=== PATIENT | female | born 1930 | race Caucasian/White ===

== ENCOUNTER 2016-11-29 23:57 | Inpatient (IN) | payer MEDICARE, MEDICAID, OTHER ==
[2016-11-30 00:20] LABS: % EOSINOPHILS 1.5 % (0.0-5.0); % LYMPHOCYTES 11.4 % (20.0-50.0); % MONOCYTES 6.6 % (2.0-10.0); % NEUTROPHILS 80.5 % (40.0-80.0); HEMOGLOBIN 13.6 gm/dL (11.7-16.1); MEAN CORPUSCULAR HEMOGLOBIN 28.7 pg (27.0-31.0); MEAN CORPUSCULAR HGB CONC 33.3 pg (28.0-36.0); MEAN PLATELET VOLUME 8.3 fl; NEUTROPHILE ABSOLUTE 11.7 Th/cmm (1.8-8.0); PLATELET COUNT 243 Th/cmm (150-400); RED BLOOD COUNT 4.76 Mil/cmm (3.80-5.20); RED CELL DISTRIBUTION WIDTH 13.9 % (11.5-20.0)
[2016-11-30 00:24] LABS: WHITE BLOOD COUNT 14.6 Th/cmm (4.8-10.8)
[2016-11-30 00:35] LABS: ANION GAP 9.9 (7.0-16.0); BUN - UREA NITROGEN 16 mg/dL (7-25); BUN/CREATININE RATIO 22.9; CALCIUM SERUM 9.7 mg/dL (8.6-10.3); CARBON DIOXIDE 23.4 mEq/L (21.0-31.0); CHLORIDE 107 mEq/L (98-107); CREATININE - SERUM 0.7 mg/dL (0.6-1.2); GLUCOSE 123 mg/dL (70-105); LIPASE 12 U/L (11-82); POTASSIUM SERUM 4.3 mEq/L (3.5-5.1); SODIUM SERUM 136 mEq/L (136-145)
--- NOTE | 2016-11-30 00:52 | ED Physician Chart ---
Chief Complaint/HPI - Patient Information Date Seen:: 11/30/16 Time Seen:: 00:20 Chief Complaint:: abdominal pain History of Present Illness:: Patient developed left lower quadrant pain at 1400 yesterday. She had no vomiting or diarrhea. Her last bowel movement was 2 days ago. Allergies:: Allergies Allergy/AdvReac Type Severity Reaction Status Date / Time ibuprofen [From Motrin] Allergy Verified 11/30/16 00:32 Vitals:: Vital Signs - 8 hr 11/30/16 00:00 Temp 98.2 F HR 68 RR 18 BP 153/93 O2 Sat % 94 Review of Systems - Review of Systems General/Constitutional: No fever, No chills Skin: No skin lesions Head: No headache Eyes: No loss of vision ENT: No earache Neck: No neck pain Cardio Vascular: No chest pain Pulmonary: No SOB GI: No nausea, No vomiting, No diarrhea, Pain G/U: No dysuria, No frequency Musculoskeletal: No bone or joint pain, No back pain Endocrine: No polyuria, No polydipsia Psychiatric: Prior psych history Hematopoietic: No bruising, No lymphadenopathy Allergic/Immuno: No urticaria, No angioedema Neurological: No syncope, No focal symptoms Past Medical History - Past Medical History Past Medical History: HTN, Dyslipidemia, PUD/GERD, Arthritis, Other ( hyperlipidemia; polyneuropathy; hypothyroidism; vitamin D deficiency; major depression; bipolar disorder; insomnia; hearing impaired) Family History: Diabetes Melitus Social History: Non Smoker, No Alcohol Surgical History: other (colon cancer in 2012) Psychiatricy History: Depression, Bipolar Medication: Reviewed Family Medical History - Family Member Son History Unknown: Yes Physical Exam - Physical Examination General/Constitutional: Well-developed, well-nourished, Alert, No distress Head: Atraumatic Eyes: Lids, conjuctiva normal, PERRL Skin: Nl inspection, No rash, No skin lesions, No ecchymosis ENMT: External ears, nose nl, Lips, teeth, gums nl, Tonsils nl Neck: No nuchal rigidity Respiratory: Nl effort/Exclusion, Clear to Auscultation, No Wheeze/Rhonchi/Rales Cardio Vascular: RRR, No murmur, gallop, rubs, NL S1 S2 GI: No organomegaly, No hernia, Normal BS's Other GI comments:: Abdomen distended,: Lower abdominal tenderness maximum in the left lower quadrant Extremities: No edema, Normal digits & nails Neuro/Psych: No focal deficits Misc: Normal back, No paraspinal tenderness Labs/Radiology/EKG Results - Lab Results Results: Laboratory Tests 11/30/16 11/30/16 00:10 00:10 WBC 14.6 H RBC 4.76 Hgb 13.6 Hct 41.0 MCV 86.0 MCH 28.7 MCHC Differential 33.3 RDW 13.9 Plt Count 243 MPV 8.3 Neutrophils % 80.5 H Lymphocytes % 11.4 L Monocytes % 6.6 Eosinophils % 1.5 Basophils % 0.0 Sodium 136 Potassium 4.3 Chloride 107 Carbon Dioxide 23.4 Anion Gap 9.9 BUN 16 Creatinine 0.7 Est GFR ( Amer) TNP Est GFR (Non-Af Amer) TNP BUN/Creatinine Ratio 22.9 Glucose 123 H Calcium 9.7 Lipase 12 - Radiology Results Results: CT scan abdomen and pelvis: diverticulitis ED Septic Shock - . Is Septic Shock (SBP<90, OR Lactate>4 mmol\L) present?: No - <6hrs of presentation: Vital Signs: Vital Signs - 8 hr 11/30/16 00:00 Temp 98.2 F HR 68 RR 18 BP 153/93 O2 Sat % 94 Reassessment (Disposition) - Reassessment Reassessment Condition:: Unchanged - Diagnosis Diagnosis:: diverticulitis; urinary retention - Patient Disposition Admitted to:: Med/Surg Spoke to:: Kanu Lang Admitting Medical Physician:: Kanu Lang Condition at Disposition:: Stable, Unchanged
[2016-11-30 01:02] LABS: URINE BILIRUBIN NEGATIVE (NEGATIVE); URINE BLOOD NEGATIVE (NEGATIVE); URINE COLOR YELLOW; URINE GLUCOSE (UA) NEGATIVE (NEGATIVE); URINE KETONE NEGATIVE (NEGATIVE); URINE PROTEIN NEGATIVE (NEGATIVE); URINE UROBILINOGEN 0.2 E.U./dL (0.2 - 1.0)
[2016-11-30 01:03] LABS: URINE BACTERIA NONE SEEN /hpf (NONE SEEN); URINE EPITHELIAL CELLS NONE SEEN /lpf (FEW); URINE RBC NONE SEEN /hpf (0-5)
[2016-11-30] MEDS ORDERED: Sodium Chloride 0.9% 1,000 ML IV ONE (03:02)
[2016-11-30] MEDS ORDERED: Ciprofloxacin 400mg Premix PB 400 MG/200 ML BAG IV ONE ×2 (03:03→03:07)
[2016-11-30 05:03] VITALS: BP 127/44
[2016-11-30] MEDS ORDERED: guaiFENesin 200 MG/10 ML UDC PO PRN (08:14)
[2016-11-30] MEDS ORDERED: Albuterol Nebulizer 2.5mg/3mL IH PRN (08:14)
[2016-11-30] MEDS ORDERED: Ipratropium Neb 0.5 mg/2.5 mL UD IH PRN (08:14)
[2016-11-30] MEDS: Vitamin D3 2,000 IU SGL PO SCH (10:15)
[2016-11-30] MEDS: metroNIDAZOLE 500mg/NS 100mL 500 MG/100 ML BAG IV SCH ×2 (10:16→20:16)
--- NOTE | 2016-11-30 10:25 | Diagnostic Imaging Report ---
CT abdomen and pelvis without intravenous contrast Indication: Abdominal pain Comparison: None, Technique: Axial images were obtained from the lung bases to the bilateral proximal femurs without IV contrast. Coronal reconstructions were made. total DLP: 394, CTDI8.5 FINDINGS: Exam is limited due to motion. Hypoventilatory changes and minimal passive atelectatic and consolidative changes of the lung bases are noted. Assessment of solid organs is limited due to lack of IV contrast. Hepatomegaly is noted with fatty gestation. Small gallstone versus less likely calcification in the gallbladder wall is noted. No focal splenic lesions. Small calcification seen in the tail of the pancreas which may be due to old inflammatory process. No focal adrenal lesions. No hydronephrosis or focal renal lesions. A Peterson catheter seen within collapsed in the bladder. Diverticulosis is noted with diverticulitis involving the distal descending and proximal sigmoid colon with surrounding inflammatory changes and small amount of free fluid. No evidence of free abdominal air. Moderate amount of stool is noted. A small wide-base fat-containing ventral hernia is seen with adjacent bowel loops. Postsurgical changes are seen along the transverse colon with evidence of previous hemicolectomy. Diffuse atherosclerotic vascular disease is noted. A calcified right posterior mesenteric lymph nodes are noted. Diffuse atherosclerotic vascular disease noted. Advanced degenerative changes of spine are noted. IMPRESSION: Findings consistent with diverticulitis of distal descending and proximal sigmoid colon with bowel wall thickening, inflammatory changes small amount of free fluid in this region. No evidence of abscess formation or free air. Clinical correlation follow-up is recommended to ensure resolution. Prominent liver with fatty infiltration Small gallstone versus less likely focal calcification of the gallbladder wall. Small wide-base fat-containing ventral hernia with an adjacent bowel loop noted. Diffuse atherosclerotic vascular disease. Mild bibasal atelectatic and minimal consolidative changes. Peterson catheter within collapsed urinary bladder.
[2016-11-30] MEDS: D5-0.45NS 1,000 ML IV SCH ×2 (10:48→23:26)
[2016-11-30] MEDS ORDERED: Levofloxacin 500mg/100mL 500 MG/100 ML BAG IV SCH (12:00)
[2016-11-30] MEDS ORDERED: VTE Chemical Prophylaxis Screen/Admission MC PRN (15:16)
[2016-11-30] MEDS: Morphine Sulfate 2 mg/mL 1mL Syr IVP PRN (16:48)
[2016-11-30] MEDS: Magnesium Hydroxide (MOM) 30 mL UDC PO SCH (20:16)
--- NOTE | 2016-11-30 20:21 | Admit Criteria Form ---
Admit Criteria Forms - Admit Criteria Diagnosis: DIVERTICULITIS, ACUTE Clinical Indications for Admission to Inpatient Care (Place 'X' for any and all applicable criteria): Admission is indicated for ANY ONE of the following (1)(2)(3)(4): [ ]I. Peritoneal signs on physical examination (eg, acute abdominal pain, abdominal tenderness and guarding) [ ]II. Hemodynamic instability [ ]III. Persistent gross bleeding per rectum [ ]IV. Need for inpatient surgical intervention [ ]V. Significant abnormality on imaging study including ANY ONE of the following: [ ]a) Abscess [ ]b) Obstruction [ ]c) Fistula [ ]d) Ileus [ ]e) Free perforation [ ]. Immunocompromised patient (steroid use, chemotherapy, uremia, AIDS , transplant patient ) with acute symptoms [X]VII Inpatient admission required rather than observation care (also use Diverticulitis, Acute: Observation Care as appropriate) because of ANY ONE of the following: [ ]a) High fever or infection. requiring inpatient admission as indicated by ANY ONE of the following(5): [ ]1) Appropriate outpatient or observation care antimicrobial treatment unavailable, not effective, not feasible [ ]2) Temperature > 103.1 degrees F (39.5 degrees C) (oral) or < 96.8 degrees F (36 degrees C)(rectal) that does not respond to all emergency treatment measures [ ]3) Temperature> 104.9 degrees F (40.5 degrees C)( oral) [ ]4) Documented bacteremia [ ]b) Severe pain requiring acute inpatient management [ ]c) Severe electrolyte abnormalities requiring inpatient care [ ]d) Ongoing transfusion for blood loss (> 2 units) [ ]e) IV fluid to replace significant ongoing losses (> 3 L/m2 per day) [ ]f) Parenteral nutrition regimen that must be implemented on inpatient basis [X]g) Other condition, treatment or monitoring requiring inpatient admission Extended stay beyond goal length of stay may be needed for (2) (15) : [ ]a) Unresolved symptoms (19) [ ]b) Complications [ ]c) Diverticular hemorrhage(2) The original [facility] [employer] content created by [facility] [employer] has been revised. The portions of the content which have been revised are identified through the use of italic text or in bold, and [facility] has neither reviewed nor approved the modified material. All other unmodified content is copyright [facility]. Please see references footnoted in the original [facility] edition 2016 Admit Criteria Met?: Yes
--- NOTE | 2016-11-30 22:29 | History & Physical ---
ADMIT DATE: 11/30/2016 CHIEF COMPLAINT: Abdominal pain. HISTORY OF PRESENT ILLNESS: This is an 86-year-old female with history of osteoarthritis, deaf and GERD, hypercholesterolemia, bipolar, hypertension, was admitted from nursing facility secondary to abdominal pain and discomfort with distention. The patient was brought in the ER and diagnosed with acute diverticulitis and admitted for inpatient case. PAST MEDICAL HISTORY: As mentioned in history of present illness. PAST SURGICAL HISTORY: Unable to obtain from the patient. The patient is confused. ALLERGIES: IBUPROFEN. MEDICATIONS: Fenofibrate, tramadol, Tylenol, Dulcolax, gabapentin, Synthroid, losartan, magnesium, sertraline and Abilify. FAMILY HISTORY: Noncontributory. SOCIAL HISTORY: The patient is a detention patient, requiring 24-hour total care. REVIEW OF SYSTEMS: This is limited secondary to the patient's current mental state. We will try to obtain a more detailed review of system at a later date by talking to family members, Alex Langston, number [phone]. There is another Jude Love, ____, number [phone]. Also, try to get information from the nursing staff at [place], . PHYSICAL EXAMINATION: VITAL SIGNS: Blood pressure 116/51, respirations 18, pulse 60, temperature 98.5. GENERAL: Elderly female, morbidly obese. NECK: Supple. No mass. LUNGS: Equal breath sounds, few rhonchi. HEART: Regular rhythm. Systolic ejection murmur. ABDOMEN: Soft, nontender, globular, positive bowel sounds. Tender to palpation. NEUROLOGIC: Limited, moving all 4 extremities. LABORATORY DATA: WBC 14.6, hemoglobin 13, platelets of 43. Sodium 136, potassium ____, BUN 16, creatinine 0.7. Blood sugar 123. LFTs are not available. ASSESSMENT: Acute diverticulitis, leukocytosis, fatty liver, osteoarthritis, deafness, gastroesophageal reflux disease, hypercholesterolemia, bipolar, hypertension. PLAN: We will continue patient on IV antibiotic and IV hydration. Continue Levaquin as well Flagyl. GI has been consulted. We will continue to monitor the patient closely. JOB# [id number]
[2016-12-01] MEDS: Morphine Sulfate 2 mg/mL 1mL Syr IVP PRN ×2 (03:15→22:44)
[2016-12-01] MEDS: metroNIDAZOLE 500mg/NS 100mL 500 MG/100 ML BAG IV SCH ×3 (04:55→20:38)
[2016-12-01 06:43] LABS: % BASOPHILS 0.6 % (0.0-2.0); % EOSINOPHILS 1.8 % (0.0-5.0); % LYMPHOCYTES 13.3 % (20.0-50.0); % MONOCYTES 8.2 % (2.0-10.0); % NEUTROPHILS 76.1 % (40.0-80.0); MEAN CELL VOLUME 85.6 fl (81-100); MEAN CORPUSCULAR HEMOGLOBIN 29.5 pg (27.0-31.0); MEAN CORPUSCULAR HGB CONC 34.5 pg (28.0-36.0); MEAN PLATELET VOLUME 8.5 fl; NEUTROPHILE ABSOLUTE 7.7 Th/cmm (1.8-8.0); RED BLOOD COUNT 4.07 Mil/cmm (3.80-5.20); RED CELL DISTRIBUTION WIDTH 13.5 % (11.5-20.0)
[2016-12-01] MEDS: Levothyroxine 0.1 Mg Tab PO SCH (06:47)
[2016-12-01 07:03] LABS: ALB/GLOB RATIO 1.3 (1.0-1.8); ALKALINE PHOSPHATASE 29 U/L (34-104); ANION GAP 6.5 (7.0-16.0); BILIRUBIN,TOTAL 0.5 mg/dL (0.3-1.0); BUN - UREA NITROGEN 9 mg/dL (7-25); BUN/CREATININE RATIO 12.9; CARBON DIOXIDE 24.3 mEq/L (21.0-31.0); CHLORIDE 110 mEq/L (98-107); CREATININE - SERUM 0.7 mg/dL (0.6-1.2); GLUCOSE 121 mg/dL (70-105); MAGNESIUM 1.8 mg/dL (1.9-2.7); POTASSIUM SERUM 3.8 mEq/L (3.5-5.1); SGOT 10 U/L (13-39); SGPT/ALT 7 U/L (7-52); SODIUM SERUM 137 mEq/L (136-145)
[2016-12-01 07:06] LABS: HEMATOCRIT 34.8 % (35.0-45.0); WHITE BLOOD COUNT 10.2 Th/cmm (4.8-10.8)
[2016-12-01 07:34] LABS: PLATELET COUNT 201 Th/cmm (150-400)
[2016-12-01 07:50] LABS: TSH 3.15 uIU/ml (0.34-5.60)
[2016-12-01 08:09] LABS: INR 1.09 (0.5-1.4); PROTHROMBIN TIME (TEST) 11.3 SECONDS (9.5-11.5)
[2016-12-01] MEDS: Vitamin D3 2,000 IU SGL PO SCH (08:12)
--- NOTE | 2016-12-01 10:01 | Consultation ---
DATE OF CONSULTATION: 11/30/2016 GASTROINTESTINAL CONSULTATION: REASON FOR CONSULTATION: Diverticulitis. HISTORY OF PRESENT ILLNESS: This is an 86-year-old female with a past medical history significant for hypertension, hyperlipidemia, polyneuropathy, bipolar disorder, depression, history of peptic ulcer disease, and GERD, who presents with acute onset of left lower quadrant abdominal pain. The patient had initial imaging, which showed evidence of diverticulitis, located in the distal descending colon and proximal sigmoid colon without obvious evidence of ____ abscess in the area. The patient was also noted to have previous hemicolectomy. PAST MEDICAL HISTORY: As per HPI. PAST SURGICAL HISTORY: As per HPI, hemicolectomy for colon cancer in 2011. SOCIAL HISTORY: No recent tobacco, alcohol, or drugs. MEDICATIONS: Please see medication reconciliation form. FAMILY HISTORY: Unable to obtain currently. REVIEW OF SYSTEMS: Unable to obtain given mental status. PHYSICAL EXAMINATION: VITAL SIGNS: Temperature is 98, pulse 60, respirations 18, blood pressure 116/51, pulse ox 95%. GENERAL: The patient ____, however, when abdomen is palpated, the patient states that it hurts. CARDIOVASCULAR: Regular rate and rhythm. ABDOMEN: Tender to palpation, distended. LABORATORY DATA: White count 14.6, hemoglobin 13.6, platelets are 243. IMAGING: Abdominal pelvic CT shows hepatomegaly, small gallstone, diverticulosis with diverticulitis involving the distal descending and sigmoid colon, post-surgical changes along the transverse colon with evidence of previous hemicolectomy. ASSESSMENT AND PLAN: This is an 86-year-old female with history of bipolar disorder and prior colon cancer with hemicolectomy, presenting with acute diverticulitis of the distal descending colon and proximal sigmoid colon. Continue IV antibiotics. We will keep n.p.o. for now, supportive care. Once the patient's pain is improves, can ____ diet. Continue current IV antibiotics. Thank you for this consult and allowing us to participate in the care of this patient. [facility]# [id number]
[2016-12-01] MEDS: Levofloxacin 250mg/50mL 250 MG/50 ML BAG IV SCH (11:50)
[2016-12-01] MEDS: D5-0.45NS 1,000 ML IV SCH (14:56)
--- NOTE | 2016-12-01 14:59 | Internal Medicine Prog Note ---
Internal Medicine Subjective - Subjective Patient seen and examined:: with staff, chart reviewed, other (agitated) Patient is:: awake, verbal, interactive Patient Complaints of:: congestion, bloated Per staff patient is:: poor appetite, unstable gait, agitated, combative, noncompliant, confused Internal Medicine Objective - Results Result Diagrams: 12/01/16 06:01 12/01/16 06:01 Recent Labs: Laboratory Last Values WBC 10.2 Th/cmm (4.8-10.8) D 12/01/16 06:01 RBC 4.07 Mil/cmm (3.80-5.20) 12/01/16 06:01 Hgb 12.0 gm/dL (11.7-16.1) 12/01/16 06:01 Hct 34.8 % (35.0-45.0) L D 12/01/16 06:01 MCV 85.6 fl (81-100) 12/01/16 06:01 MCH 29.5 pg (27.0-31.0) 12/01/16 06:01 MCHC Differential 34.5 pg (28.0-36.0) 12/01/16 06:01 RDW 13.5 % (11.5-20.0) 12/01/16 06:01 Plt Count 201 Th/cmm (150-400) 12/01/16 06:01 MPV 8.5 fl 12/01/16 06:01 Neutrophils % 76.1 % (40.0-80.0) 12/01/16 06:01 Lymphocytes % 13.3 % (20.0-50.0) L 12/01/16 06:01 Monocytes % 8.2 % (2.0-10.0) 12/01/16 06:01 Eosinophils % 1.8 % (0.0-5.0) 12/01/16 06:01 Basophils % 0.6 % (0.0-2.0) 12/01/16 06:01 PT 11.3 SECONDS (9.5-11.5) 12/01/16 06:01 INR 1.09 (0.5-1.4) 12/01/16 06:01 PTT (Actin FS) 29.1 SECONDS (26.0-38.0) 12/01/16 06:01 Sodium 137 mEq/L (136-145) 12/01/16 06:01 Potassium 3.8 mEq/L (3.5-5.1) 12/01/16 06:01 Chloride 110 mEq/L (98-107) H 12/01/16 06:01 Carbon Dioxide 24.3 mEq/L (21.0-31.0) 12/01/16 06:01 Anion Gap 6.5 (7.0-16.0) L 12/01/16 06:01 BUN 9 mg/dL (7-25) 12/01/16 06:01 Creatinine 0.7 mg/dL (0.6-1.2) 12/01/16 06:01 Est GFR ( Amer) TNP 12/01/16 06:01 Est GFR (Non-Af Amer) TNP 12/01/16 06:01 BUN/Creatinine Ratio 12.9 12/01/16 06:01 Glucose 121 mg/dL (70-105) H 12/01/16 06:01 Whole Bld Lactic Acid 1.35 mmol/L (0.60-1.99) 11/30/16 00:44 Calcium 9.0 mg/dL (8.6-10.3) 12/01/16 06:01 Magnesium 1.8 mg/dL (1.9-2.7) L 12/01/16 06:01 Total Bilirubin 0.5 mg/dL (0.3-1.0) 12/01/16 06:01 AST 10 U/L (13-39) L 12/01/16 06:01 ALT 7 U/L (7-52) 12/01/16 06:01 Alkaline Phosphatase 29 U/L (34-104) L 12/01/16 06:01 Ammonia 42 umol/L (16-53) 12/01/16 06:01 B-Natriuretic Peptide 80.8 pg/mL (5.0-100.0) 12/01/16 06:01 Total Protein 6.0 gm/dL (6.0-8.3) 12/01/16 06:01 Albumin 3.4 gm/dL (3.7-5.3) L 12/01/16 06:01 Globulin 2.6 gm/dL 12/01/16 06:01 Albumin/Globulin Ratio 1.3 (1.0-1.8) 12/01/16 06:01 Lipase 12 U/L (11-82) 11/30/16 00:10 TSH 3.15 uIU/ml (0.34-5.60) 12/01/16 06:01 Urine Source [place] 11/30/16 00:24 Urine Color YELLOW 11/30/16 00:24 Urine Clarity CLEAR (CLEAR) 11/30/16 00:24 Urine pH 6.0 11/30/16 00:24 Ur Specific [place] 1.020 (1.005-1.030) 11/30/16 00:24 Urine Protein NEGATIVE mg/dL (NEGATIVE) 11/30/16 00:24 Urine Glucose (UA) NEGATIVE mg/dL (NEGATIVE) 11/30/16 00:24 Urine Ketones NEGATIVE mg/dL (NEGATIVE) 11/30/16 00:24 Urine Blood NEGATIVE (NEGATIVE) 11/30/16 00:24 Urine Nitrate NEGATIVE (NEGATIVE) 11/30/16 00:24 Urine Bilirubin NEGATIVE (NEGATIVE) 11/30/16 00:24 Urine Urobilinogen 0.2 E.U./dL (0.2 - 1.0) 11/30/16 00:24 Ur Leukocyte Esterase TRACE (NEGATIVE) H 11/30/16 00:24 Urine RBC NONE SEEN /hpf (0-5) 11/30/16 00:24 Urine WBC 2-5 /hpf (0-5) 11/30/16 00:24 Ur Epithelial Cells NONE SEEN /lpf (FEW) 11/30/16 00:24 Urine Bacteria NONE SEEN /hpf (NONE SEEN) 11/30/16 00:24 - Physical Exam Vitals and I&O: Vital Signs Temp 97.4 F 12/01/16 12:00 Pulse 76 12/01/16 12:00 Resp 20 12/01/16 12:00 BP 133/72 12/01/16 12:00 Pulse Ox 98 12/01/16 12:00 Intake & Output 11/30/16 12/01/16 12/01/16 18:59 06:59 18:59 Intake Total 200 1230 Output Total 1700 Balance 200 -470 Intake: Intake, IV Amount 200 1200 D5-0.45NS 1,000 ml @ 100 1000 mls/hr IV .Q10H [facility] Rx#: [id number] Levofloxacin 500mg/100mL 100 500 mg In 100 ml @ 100 mls/hr IV Q24HR [facility] Rx#: [id number] metroNIDAZOLE 500mg/NS 100 200 100mL 500 mg In 100 ml @ 100 mls/hr IV Q8HR [facility] Rx #:[id number] Oral 30 Output: Urine 1700 Other: # Bowel Movements 0 Active Medications: Current Medications Acetaminophen (Tylenol) 650 mg PO Q6HR PRN PRN Reason: Pain or Fever >101 Stop: 01/29/17 08:12 Albuterol Sulfate (Albuterol 2.5mg/3ml Neb Ud) 2.5 mg IH Q2HR PRN PRN Reason: Shortness of Breath or Wheeze Stop: 01/29/17 08:13 Aripiprazole (Abilify) 2 mg PO HS [facility]ICEL PRN Reason: Protocol Stop: 01/29/17 20:59 Last Admin: 11/30/16 20:16 Dose: 2 mg Bisacodyl (Dulcolax 10 Mg Supp) 10 mg RC DAILY PRN PRN Reason: Constipation Stop: 01/29/17 08:12 Docusate Sodium (Colace) 100 mg PO DAILY [facility] Stop: 01/29/17 08:59 Last Admin: 12/01/16 08:12 Dose: 100 mg Gabapentin (Neurontin) 300 mg PO HS [facility] Stop: 01/29/17 20:59 Last Admin: 11/30/16 20:16 Dose: 300 mg Guaifenesin (Robitussin) 200 mg PO Q4HR PRN PRN Reason: Cough or Congestion Stop: 01/29/17 08:13 Heparin Sodium (Porcine) (Heparin) 5,000 units SUBQ Q12H [facility] Stop: 01/29/17 20:59 Last Admin: 12/01/16 08:14 Dose: 5,000 units Metronidazole (Flagyl) 500 mg in 100 mls @ 100 mls/hr IV Q8HR [facility] Stop: 01/29/17 10:59 Last Admin: 12/01/16 12:45 Dose: 100 mls/hr Levofloxacin (Levaquin Pb) 250 mg in 50 mls @ 250 mls/hr IV Q24H [facility] Stop: 01/30/17 11:59 Last Admin: 12/01/16 11:50 Dose: 250 mls/hr Dextrose/Sodium Chloride (D5-0.45ns) 1,000 mls @ 70 mls/hr IV .[id number] [facility] Stop: 01/30/17 14:35 Ipratropium Malone (Atrovent Neb 0.5mg/2.5ml) 0.5 mg IH Q2HR PRN PRN Reason: Shortness of Breath or Wheeze Stop: 01/29/17 08:13 Levothyroxine Sodium (Synthroid) 0.1 mg PO QDAC [facility] Stop: 01/30/17 07:29 Last Admin: 12/01/16 06:47 Dose: 0.1 mg Losartan Potassium (Cozaar) 50 mg PO DAILY [facility] Stop: 01/29/17 08:59 Last Admin: 12/01/16 08:12 Dose: 50 mg Magnesium Hydroxide (Milk Of Magnesia) 30 ml PO HS [facility] Stop: 01/29/17 20:59 Last Admin: 11/30/16 20:16 Dose: 30 ml Miscellaneous (Clinical Monitoring) 1 [facility] PRN PRN PRN Reason: RENAL DOSE LEVAQUIN Stop: 01/29/17 09:23 Miscellaneous (Vte Chemical Prophylaxis Screen/ Admission) 1 [facility] PRN PRN PRN Reason: PROTOCOL Stop: 01/29/17 15:15 Morphine Sulfate (Morphine) 1 mg IVP Q4HR PRN PRN Reason: Pain (Severe) Stop: 01/29/17 08:13 Last Admin: 12/01/16 03:15 Dose: 1 mg Ondansetron HCl (Zofran) 4 mg IV Q8H PRN PRN Reason: Nausea / Vomiting Stop: 01/29/17 08:13 Sertraline HCl (Zoloft) 75 mg PO DAILY [facility]IC[facility] PRN Reason: Protocol Stop: 01/29/17 08:59 Last Admin: 12/01/16 08:12 Dose: 75 mg Vitamin D (Vitamin D3) 5,000 iu PO DAILY [facility] Stop: 01/29/17 08:59 Last Admin: 12/01/16 08:12 Dose: 5,000 iu General: demented HEENT: NC/AT, PERRLA Neck: Supple, No JVD Lungs: congested Cardiovascular: RRR, Normal S1, Normal S2 Abdomen: soft non-tender, globular, distended, positive bowel sound Extremities: excoriation, contracture Neurological: unable to follow command Internal Medicine Assmt/Plan - Assessment Assessment: acute diverticulitis gerd bipolar obesity debilitation - Plan Plan: cont on iv abx iv hydration seen by gi will refer to psych [place] orders ana [place]n
[2016-12-01] MEDS: Magnesium Hydroxide (MOM) 30 mL UDC PO SCH ×2 (20:39→20:49)
[2016-12-02] MEDS: Morphine Sulfate 2 mg/mL 1mL Syr IVP PRN (02:48)
[2016-12-02] MEDS: D5-0.45NS 1,000 ML IV SCH (04:20)
[2016-12-02] MEDS: metroNIDAZOLE 500mg/NS 100mL 500 MG/100 ML BAG IV SCH ×3 (04:21→21:02)
[2016-12-02] MEDS: Levothyroxine 0.1 Mg Tab PO SCH (06:36)
[2016-12-02] MEDS: Vitamin D3 2,000 IU SGL PO SCH (09:08)
[2016-12-02] MEDS: Levofloxacin 250mg/50mL 250 MG/50 ML BAG IV SCH (11:34)
--- NOTE | 2016-12-02 12:42 | History & Physical ---
ADMIT DATE: 12/02/2016 REQUESTING PHYSICIAN: Dr. Lang. REASON FOR CONSULTATION: History of depression. HISTORY OF PRESENT ILLNESS: This patient is an 86-year-old admitted from the retirement facility because of abdominal distention and discomfort and rule out diverticulitis and psychiatric consultation requested to address the issue of the depression. Review of the chart indicates that the patient had been on Abilify and at one time on the lithium and Zoloft and patient during the interview has been very quiet and has not been able to provide much of information. Staff reporting that the patient did not have much of sleep last night and she is sleeping now. The patient is reported to have been out of control and has been trying to get out of the bed and the patient has to be placed on self restraints and the patient has to be provided with supportive therapy. At this time, I am not able to get much of information. Most of the information has to be obtained from the review of the record and the staff members record. PAST PSYCHIATRIC HISTORY: Details are not known. MEDICAL HISTORY: The patient at this time is admitted for abdominal discomfort. The patient has a history of hypertension, hypothyroidism, and hypercholesterolemia, and at this time being admitted for rule out diverticulitis. SEXUAL ABUSE HISTORY: None. SOCIAL HISTORY: The patient is at the retirement facility. MENTAL EXAMINATION: The patient is an 86-year-old woman looking her stated age, superficially cooperative. Eye contact is poor. Mood depressed. Affect is constricted. Insight and judgment at this time are noted to be still impaired. Impulse control seems to be limited. Coping skills are also noted to be poor. The patient has been having difficult time to cope with the stress. No side effects to the medications are noted. The patient is not presenting with any threats to harm self, but the patient is noted to be very irritable and angry and has been trying to get out of the bed. The patient's short term and group home are noted to be very much impaired. The patient is getting easily frustrated when I am asking the questions. The patient is stating that she does not have any sleep. She wants to be left alone. DIAGNOSTIC IMPRESSION: Major depressive disorder, recurrent and moderate. PLAN: To continue the patient with Zoloft and possibly decrease the dose of Zoloft to 50 mg and in view of her age, follow the patient with supportive therapy. [facility]# [id number]
[2016-12-02] MEDS: Magnesium Hydroxide (MOM) 30 mL UDC PO SCH (21:03)
[2016-12-02] MEDS ORDERED: D5-0.45NS 1,000 ML IV SCH (22:10)
--- NOTE | 2016-12-02 22:12 | Internal Medicine Prog Note ---
Internal Medicine Subjective - Subjective Patient seen and examined:: with staff, chart reviewed, other (pt with 1-1) Patient is:: awake, verbal, interactive Patient Complaints of:: congestion Per staff patient is:: no adverse event, poor appetite, confused Internal Medicine Objective - Results Result Diagrams: 12/01/16 06:01 12/01/16 06:01 Recent Labs: Laboratory Last Values WBC 10.2 Th/cmm (4.8-10.8) D 12/01/16 06:01 RBC 4.07 Mil/cmm (3.80-5.20) 12/01/16 06:01 Hgb 12.0 gm/dL (11.7-16.1) 12/01/16 06:01 Hct 34.8 % (35.0-45.0) L D 12/01/16 06:01 MCV 85.6 fl (81-100) 12/01/16 06:01 MCH 29.5 pg (27.0-31.0) 12/01/16 06:01 MCHC Differential 34.5 pg (28.0-36.0) 12/01/16 06:01 RDW 13.5 % (11.5-20.0) 12/01/16 06:01 Plt Count 201 Th/cmm (150-400) 12/01/16 06:01 MPV 8.5 fl 12/01/16 06:01 Neutrophils % 76.1 % (40.0-80.0) 12/01/16 06:01 Lymphocytes % 13.3 % (20.0-50.0) L 12/01/16 06:01 Monocytes % 8.2 % (2.0-10.0) 12/01/16 06:01 Eosinophils % 1.8 % (0.0-5.0) 12/01/16 06:01 Basophils % 0.6 % (0.0-2.0) 12/01/16 06:01 PT 11.3 SECONDS (9.5-11.5) 12/01/16 06:01 INR 1.09 (0.5-1.4) 12/01/16 06:01 PTT (Actin FS) 29.1 SECONDS (26.0-38.0) 12/01/16 06:01 Sodium 137 mEq/L (136-145) 12/01/16 06:01 Potassium 3.8 mEq/L (3.5-5.1) 12/01/16 06:01 Chloride 110 mEq/L (98-107) H 12/01/16 06:01 Carbon Dioxide 24.3 mEq/L (21.0-31.0) 12/01/16 06:01 Anion Gap 6.5 (7.0-16.0) L 12/01/16 06:01 BUN 9 mg/dL (7-25) 12/01/16 06:01 Creatinine 0.7 mg/dL (0.6-1.2) 12/01/16 06:01 Est GFR ( Amer) TNP 12/01/16 06:01 Est GFR (Non-Af Amer) TNP 12/01/16 06:01 BUN/Creatinine Ratio 12.9 12/01/16 06:01 Glucose 121 mg/dL (70-105) H 12/01/16 06:01 POC Glucose 139 MG/DL (70 - 105) H 12/01/16 16:36 Whole Bld Lactic Acid 1.35 mmol/L (0.60-1.99) 11/30/16 00:44 Calcium 9.0 mg/dL (8.6-10.3) 12/01/16 06:01 Magnesium 1.8 mg/dL (1.9-2.7) L 12/01/16 06:01 Total Bilirubin 0.5 mg/dL (0.3-1.0) 12/01/16 06:01 AST 10 U/L (13-39) L 12/01/16 06:01 ALT 7 U/L (7-52) 12/01/16 06:01 Alkaline Phosphatase 29 U/L (34-104) L 12/01/16 06:01 Ammonia 42 umol/L (16-53) 12/01/16 06:01 B-Natriuretic Peptide 80.8 pg/mL (5.0-100.0) 12/01/16 06:01 Total Protein 6.0 gm/dL (6.0-8.3) 12/01/16 06:01 Albumin 3.4 gm/dL (3.7-5.3) L 12/01/16 06:01 Globulin 2.6 gm/dL 12/01/16 06:01 Albumin/Globulin Ratio 1.3 (1.0-1.8) 12/01/16 06:01 Lipase 12 U/L (11-82) 11/30/16 00:10 TSH 3.15 uIU/ml (0.34-5.60) 12/01/16 06:01 Urine Source [place] 11/30/16 00:24 Urine Color YELLOW 11/30/16 00:24 Urine Clarity CLEAR (CLEAR) 11/30/16 00:24 Urine pH 6.0 11/30/16 00:24 Ur Specific [place] 1.020 (1.005-1.030) 11/30/16 00:24 Urine Protein NEGATIVE mg/dL (NEGATIVE) 11/30/16 00:24 Urine Glucose (UA) NEGATIVE mg/dL (NEGATIVE) 11/30/16 00:24 Urine Ketones NEGATIVE mg/dL (NEGATIVE) 11/30/16 00:24 Urine Blood NEGATIVE (NEGATIVE) 11/30/16 00:24 Urine Nitrate NEGATIVE (NEGATIVE) 11/30/16 00:24 Urine Bilirubin NEGATIVE (NEGATIVE) 11/30/16 00:24 Urine Urobilinogen 0.2 E.U./dL (0.2 - 1.0) 11/30/16 00:24 Ur Leukocyte Esterase TRACE (NEGATIVE) H 11/30/16 00:24 Urine RBC NONE SEEN /hpf (0-5) 11/30/16 00:24 Urine WBC 2-5 /hpf (0-5) 11/30/16 00:24 Ur Epithelial Cells NONE SEEN /lpf (FEW) 11/30/16 00:24 Urine Bacteria NONE SEEN /hpf (NONE SEEN) 11/30/16 00:24 - Physical Exam Vitals and I&O: Vital Signs Temp 97.7 F 12/02/16 20:00 Pulse 93 12/02/16 20:00 Resp 18 12/02/16 20:00 BP 128/57 12/02/16 20:00 Pulse Ox 94 12/02/16 12:00 Intake & Output 12/02/16 12/02/16 12/03/16 06:59 18:59 06:59 Intake Total 1138 200 100 Output Total 200 250 Balance 938 -50 100 Intake: Intake, IV Amount 1138 150 D5-0.45NS 1,000 ml @ 70 938 mls/hr IV .[id number] [facility] Rx #:[id number] Levofloxacin 250mg/50mL 50 250 mg In 50 ml @ 250 mls /hr IV Q24H [facility] Rx#: [id number] metroNIDAZOLE 500mg/NS 200 100 100mL 500 mg In 100 ml @ 100 mls/hr IV Q8HR [facility] Rx #:[id number] Oral 0 50 100 Output: Urine 200 250 Other: # Bowel Movements 0 Active Medications: Current Medications Acetaminophen (Tylenol) 650 mg PO Q6HR PRN PRN Reason: Pain or Fever >101 Stop: 01/29/17 08:12 Albuterol Sulfate (Albuterol 2.5mg/3ml Neb Ud) 2.5 mg IH Q2HR PRN PRN Reason: Shortness of Breath or Wheeze Stop: 01/29/17 08:13 Aripiprazole (Abilify) 2 mg PO HS [facility] PRN Reason: Protocol Stop: 01/29/17 20:59 Last Admin: 12/02/16 21:03 Dose: 2 mg Bisacodyl (Dulcolax 10 Mg Supp) 10 mg RC DAILY PRN PRN Reason: Constipation Stop: 01/29/17 08:12 Docusate Sodium (Colace) 100 mg PO DAILY [facility] Stop: 01/29/17 08:59 Last Admin: 12/02/16 09:08 Dose: Not Given Gabapentin (Neurontin) 300 mg PO HS [facility] Stop: 01/29/17 20:59 Last Admin: 12/02/16 21:03 Dose: 300 mg Guaifenesin (Robitussin) 200 mg PO Q4HR PRN PRN Reason: Cough or Congestion Stop: 01/29/17 08:13 Heparin Sodium (Porcine) (Heparin) 5,000 units SUBQ Q12H [facility] Stop: 01/29/17 20:59 Last Admin: 12/02/16 21:03 Dose: 5,000 units Metronidazole (Flagyl) 500 mg in 100 mls @ 100 mls/hr IV Q8HR [facility] Stop: 01/29/17 10:59 Last Admin: 12/02/16 21:02 Dose: 100 mls/hr Levofloxacin (Levaquin Pb) 250 mg in 50 mls @ 250 mls/hr IV Q24H [facility] Stop: 01/30/17 11:59 Last Infusion: 12/02/16 11:46 Dose: Infused Dextrose/Sodium Chloride (D5-0.45ns) 1,000 mls @ 50 mls/hr IV .Q20H [facility] Stop: 01/31/17 22:08 Ipratropium [place] (Atrovent Neb 0.5mg/2.5ml) 0.5 mg IH Q2HR PRN PRN Reason: Shortness of Breath or Wheeze Stop: 01/29/17 08:13 Levothyroxine Sodium (Synthroid) 0.1 mg PO QDAC [facility] Stop: 01/30/17 07:29 Last Admin: 12/02/16 06:36 Dose: Not Given Lorazepam (Ativan) 1 mg PO Q4HR PRN; Protocol PRN Reason: Agitation Stop: 01/30/17 17:32 Losartan Potassium (Cozaar) 50 mg PO DAILY [facility] Stop: 01/29/17 08:59 Last Admin: 12/02/16 08:04 Dose: Not Given Magnesium Hydroxide (Milk Of Magnesia) 30 ml PO HS [facility] Stop: 01/29/17 20:59 Last Admin: 12/02/16 21:03 Dose: Not Given Miscellaneous (Clinical Monitoring) 1 ea PRN PRN PRN Reason: RENAL DOSE LEVAQUIN Stop: 01/29/17 09:23 Miscellaneous (Vte Chemical Prophylaxis Screen/ Admission) 1 [facility] PRN PRN PRN Reason: PROTOCOL Stop: 01/29/17 15:15 Morphine Sulfate (Morphine) 1 mg IVP Q4HR PRN PRN Reason: Pain (Severe) Stop: 01/29/17 08:13 Last Admin: 12/02/16 02:48 Dose: 1 mg Ondansetron HCl (Zofran) 4 mg IV Q8H PRN PRN Reason: Nausea / Vomiting Stop: 01/29/17 08:13 Sertraline HCl (Zoloft) 75 mg PO DAILY [facility] PRN Reason: Protocol Stop: 01/29/17 08:59 Last Admin: 12/02/16 09:08 Dose: 75 mg Vitamin D (Vitamin D3) 5,000 iu PO DAILY [facility] Stop: 01/29/17 08:59 Last Admin: 12/02/16 09:08 Dose: 5,000 iu General: demented HEENT: NC/AT, PERRLA Neck: Supple Lungs: congested, rales Cardiovascular: RRR, Normal S1, Normal S2 Abdomen: soft non-tender, globular, positive bowel sound Extremities: excoriation Neurological: no change, disorganized Internal Medicine Assmt/Plan - Assessment Assessment: acute diverticulitis gerd bipolar obesity debilitation - Plan Plan: cont on iv abx iv hydration seen by gi will refer to psych as weelll see orders dw rn
[2016-12-03] MEDS: metroNIDAZOLE 500mg/NS 100mL 500 MG/100 ML BAG IV SCH (05:35)
[2016-12-03 06:22] LABS: % BASOPHILS 0.2 % (0.0-2.0); % EOSINOPHILS 5.1 % (0.0-5.0); % LYMPHOCYTES 18.6 % (20.0-50.0); % NEUTROPHILS 68.1 % (40.0-80.0); HEMATOCRIT 33.7 % (35.0-45.0); HEMOGLOBIN 11.7 gm/dL (11.7-16.1); MEAN CELL VOLUME 85.9 fl (81-100); MEAN CORPUSCULAR HEMOGLOBIN 29.8 pg (27.0-31.0); MEAN CORPUSCULAR HGB CONC 34.7 pg (28.0-36.0); MEAN PLATELET VOLUME 8.4 fl; NEUTROPHILE ABSOLUTE 4.1 Th/cmm (1.8-8.0); PLATELET COUNT 224 Th/cmm (150-400); RED BLOOD COUNT 3.93 Mil/cmm (3.80-5.20)
[2016-12-03 06:36] LABS: ALB/GLOB RATIO 1.3 (1.0-1.8); ALKALINE PHOSPHATASE 26 U/L (34-104); ANION GAP 4.5 (7.0-16.0); BILIRUBIN,TOTAL 0.2 mg/dL (0.3-1.0); BUN - UREA NITROGEN 9 mg/dL (7-25); CALCIUM SERUM 8.9 mg/dL (8.6-10.3); CARBON DIOXIDE 22.8 mEq/L (21.0-31.0); CHLORIDE 116 mEq/L (98-107); CREATININE - SERUM 0.6 mg/dL (0.6-1.2); GLUCOSE 127 mg/dL (70-105); MAGNESIUM 1.9 mg/dL (1.9-2.7); POTASSIUM SERUM 3.3 mEq/L (3.5-5.1); SGOT 12 U/L (13-39); SGPT/ALT 6 U/L (7-52); SODIUM SERUM 140 mEq/L (136-145)
[2016-12-03] MEDS: Vitamin D3 2,000 IU SGL PO SCH (09:42)
[2016-12-03] MEDS: Levothyroxine 0.1 Mg Tab PO SCH (09:45)
[2016-12-03] MEDS: Potassium Chloride 20 mEq ER Tab PO ONE ×2 (15:44→15:54)
--- NOTE | 2016-12-03 21:09 | Discharge Summary ---
DATE OF DISCHARGE: 12/03/2016 CHIEF COMPLAINT: Abdominal pain. FINAL DIAGNOSES: Acute diverticulitis, leukocytosis, fatty liver, osteoarthritis, diagnosed with gastroesophageal reflux disease, hypercholesterolemia, and bipolar hypertension. HISTORY: This is an 86-year-old female with history of osteoarthritis, diagnosis of GERD, hypercholesterolemia, and hypertension who was admitted from nursing facility secondary to increasing abdominal distention and pain. The patient was diagnosed with diverticulitis and admitted for further management. The patient failed outpatient therapy. PHYSICAL EXAMINATION: VITAL SIGNS: Blood pressure 128/57, respirations 18, pulse 60, and temperature 97.7. GENERAL: Elderly female, appears her stated age. NECK: Supple. No mass. LUNGS: Equal breath sounds with a few rhonchi. HEART: Regular rate and rhythm with systolic ejection murmur. ABDOMEN: Soft and globular. EXTREMITIES: Positive excoriations. NEUROLOGIC: Limited. HOSPITAL COURSE: The patient admitted to medical floor. The patient with 1:1 secondary to the patient being confused at times. The patient was started on IV antibiotic on Levaquin and Flagyl and referred to ____ for Gastrointestinal. No intervention at this time. The patient's condition did improve. White count did improve, within normal. The patient was cleared for discharge. The patient was also seen by Psychiatry. CONDITION ON DISCHARGE: Fair. DISCHARGE INSTRUCTIONS: The patient to continue current medical regimen. The patient to continue with antibiotic for 7 days. Case was discussed with the patient's son Jude Aleman, and he was agreeable with the above plan. JOB# [id number]
== END 2016-12-03 19:25 | DRG 392 ==
LOC: ER 23:57 → TELE 11-30 03:00
PROVIDERS: ADMIT Internal Medicine; ATTEND Internal Medicine
DX: K57.32 Diverticulitis of large intestine without perforation or abscess without bleeding (principal); K76.0 Fatty (change of) liver, not elsewhere classified; F33.1 Major depressive disorder, recurrent, moderate; G62.9 Polyneuropathy, unspecified; I10 Essential (primary) hypertension; R16.0 Hepatomegaly, not elsewhere classified; D72.829 Elevated white blood cell count, unspecified; M19.90 Unspecified osteoarthritis, unspecified site; K21.9 Gastro-esophageal reflux disease without esophagitis; H91.90 Unspecified hearing loss, unspecified ear; E78.5 Hyperlipidemia, unspecified; E03.9 Hypothyroidism, unspecified; E55.9 Vitamin D deficiency, unspecified; K80.80 Other cholelithiasis without obstruction; K57.30 Diverticulosis of large intestine without perforation or abscess without bleeding; E66.9 Obesity, unspecified; Z68.26 Body mass index [BMI] 26.0-26.9, adult; Z91.14 Patient's other noncompliance with medication regimen; Z88.6 Allergy status to analgesic agent; Z85.038 Personal history of other malignant neoplasm of large intestine; Z83.3 Family history of diabetes mellitus
CPT/HCPCS: 36415-UA; 80048-TC; 80053-TC; 81001-TC; 82140-TC; 82948-90; 83605; 83690-TC; 83735-TC; 83880-TC; 84443-TC; 85025-TC; 85610-TC; 87230-TC; 90799; 93005; 94760; J0744; J1644; J1956; J2060; J2270; J7030; J7042; Z7610

== ENCOUNTER 2017-06-04 15:28 | Inpatient (IN) | payer MEDICARE, MEDICAID ==
--- NOTE | 2017-06-04 15:39 | ED Physician Chart ---
ED Chief Complaint/HPI - Patient Information Date Seen:: 06/04/17 Time Seen:: 15:30 Chief Complaint:: Abdominal Pain History of Present Illness:: onset x 3 days of diffuse, intermittent, crampy abdominal pain and fever; no report of trauma, H/As, S/T, neck pain, C/P, cough, SOB, Flank pain, A/N/V/D/C, chills, or urinary s/s Allergies:: Allergies Allergy/AdvReac Type Severity Reaction Status Date / Time ibuprofen [From Motrin] Allergy Verified 11/30/16 00:32 Historian:: Patient, EMS Review:: Nurse's Note Reviewed, EMS run form Reviewed, Transfer documents Reviewed ED Review of Systems - Review of Systems General/Constitutional: No fever, No chills, No weight loss, No weakness, No diaphoresis, No edema, No loss of appetite Skin: No skin lesions, No rash, No bruising Head: No headache, No light-headedness Eyes: No loss of vision, No pain, No diplopia ENT: No earache, No nasal drainage, No sore throat, No tinnitus Neck: No neck pain, No swelling, No thyromegaly, No stiffness, No mass noted Cardio Vascular: No chest pain, No palpitations, No PND, No orthopnea, No edema Pulmonary: No SOB, No cough, No sputum, No wheezing GI: Nausea, Vomiting, Diarrhea, Pain, No melena, No hematochezia, No constipation, No hematemesis G/U: No dysuria, No frequency, No hematuria Musculoskeletal: No bone or joint pain, No back pain, No muscle pain Endocrine: No polyuria, No polydipsia Psychiatric: Prior psych history, Depression, Anxiety, No suicidal ideation, No homicidal ideation, No auditory hallucination, No visual hallucination Hematopoietic: No bruising, No lymphadenopathy Allergic/Immuno: No urticaria, No angioedema Neurological: No syncope, No focal symptoms, Weakness, Paresthesia, No headache , No seizure, No dizziness, Confusion, No vertigo ED Past Medical History - Past Medical History Obtainable: Yes Past Medical History: HTN, Dyslipidemia, PUD/GERD, Thyroid disorder, Other ( Diverticulitis) Family History: Heart disease, Diabetes Melitus, HTN Social History: Non Smoker, No Alcohol, No Drug Use, Single, Care Facility Surgical History: other (Abdominal Laparotomy Surgery) Psychiatricy History: Depression, Bipolar, Dementia Medication: Reviewed Family Medical History - Family Member Son History Unknown: Yes Mother History Unknown: Yes ED Physical Exam - Physical Examination General/Constitutional: Awake, Well-developed, well-nourished, Alert, No distress, GCS 15, Non-toxic appearing, Ambulatory Head: Atraumatic Eyes: Lids, conjuctiva normal, PERRL, EOMI Skin: Nl inspection, No rash, No skin lesions, No ecchymosis, Well hydrated, No lymphadenopathy ENMT: External ears, nose nl, Nasal exam nl, Lips, teeth, gums nl Neck: Nontender, Full ROM w/o pain, No JVD, No nuchal rigidity, No bruit, No mass, No stridor Respiratory: Nl effort/Exclusion, Clear to Auscultation, No Wheeze/Rhonchi/Rales Cardio Vascular: RRR, No murmur, gallop, rubs, NL S1 S2 GI: No tenderness/rebounding/guarding, No organomegaly, No hernia, Normal BS's, No mass/bruits, No McBurney tenderness Other GI comments:: + Distention : No CVA tenderness Extremities: No tenderness or effusion, Full ROM, normal strength in all extremities, No edema, Normal digits & nails Neuro/Psych: Alert/oriented, DTR's symmetric, Normal sensory exam, Normal motor strength, Judgement/insight normal, Mood normal, Normal gait, No focal deficits Misc: Normal back, No paraspinal tenderness ED Labs/Radiology/EKG Results - Radiology Results Comments:: CXR: + RLL Infiltrate - EKG Interpretations EKG Time:: 16:04 Rate & Rhythm: 69; NSR Comments:: RBBB; T-Wave Inversions V-Leads; non-specific st-t changes ED Septic Shock - . Is Septic Shock (SBP<90, OR Lactate>4 mmol\L) present?: No ED Reassessment (Disposition) - Reassessment Reassessment Condition:: Improved - Diagnosis Diagnosis:: Dx: Abdominal Pain; Fever; Pneumonia; Sepsis; Myocardial Ischemia - Aftercare/Follow up Instructions Aftercare/Follow-Up Instructions:: Counseled pt regarding lab results/diagnosis & need follow up, Counseled pt & family regarding lab results/diagnosis & need follow up - Patient Disposition Discharge/Transfer:: Acute Care w/in this hosp Accepting Physician:: Dr. lang Time Called:: 7220 Time Responded:: 16:30 Admitted to:: Med/Surg Spoke to:: Dr. Lang Admitting Medical Physician:: Dr. Lang Condition at Disposition:: Stable, Improved
[2017-06-04] MEDS ORDERED: Sodium Chloride 0.9% 1,000 ML IV ONE (15:41)
[2017-06-04] MEDS ORDERED: Levofloxacin 500mg/100mL 500 MG/100 ML BAG IV ONE ×2 (16:00→16:06)
[2017-06-04 16:14] LABS: MEAN CORPUSCULAR HEMOGLOBIN 29.3 pg (27.0-31.0); MEAN CORPUSCULAR HGB CONC 33.7 pg (28.0-36.0); MEAN PLATELET VOLUME 8.1 fl; PLATELET COUNT 194 Th/cmm (150-400); RED CELL DISTRIBUTION WIDTH 13.6 % (11.5-20.0)
[2017-06-04 16:25] LABS: INR 1.04 (0.5-1.4); PROTHROMBIN TIME (TEST) 10.8 SECONDS (9.5-11.5)
[2017-06-04 16:26] LABS: HEMATOCRIT 42.6 % (41.0-60); HEMOGLOBIN 14.3 gm/dL (12-16); WHITE BLOOD COUNT 18.9 Th/cmm (4.8-10.8)
[2017-06-04 16:30] LABS: ALB/GLOB RATIO 1.2 (1.0-1.8); ALKALINE PHOSPHATASE 57 U/L (34-104); ANION GAP 9.9 (7.0-16.0); BUN - UREA NITROGEN 12 mg/dL (7-25); CALCIUM SERUM 9.7 mg/dL (8.6-10.3); CARBON DIOXIDE 22.8 mEq/L (21.0-31.0); CHLORIDE 106 mEq/L (98-107); CHOLESTEROL 158 mg/dL (<200); CREATININE - SERUM 0.6 mg/dL (0.6-1.2); GLUCOSE 123 mg/dL (70-105); POTASSIUM SERUM 3.7 mEq/L (3.5-5.1); SGOT 11 U/L (13-39); SGPT/ALT 9 U/L (7-52); SODIUM SERUM 135 mEq/L (136-145); TRIGLYCERIDES 179 mg/dL (<150)
[2017-06-04 16:31] LABS: AMYLASE SERUM 38 U/L (29-103); LIPASE 31 U/L (11-82)
[2017-06-04 20:19] VITALS: BP 118/57
[2017-06-04] MEDS ORDERED: Magnesium Hydroxide (MOM) 30 mL UDC PO PRN (21:51)
[2017-06-04] MEDS ORDERED: Maalox 30 mL Cup PO PRN (21:52)
[2017-06-04] MEDS ORDERED: Albuterol Nebulizer 2.5mg/3mL HHN PRN (21:52)
[2017-06-04] MEDS: D5-0.45NS 1,000 ML IV SCH (22:46)
[2017-06-04] MEDS: Morphine Sulfate 2 mg/mL 1mL Syr IVP PRN (22:47)
[2017-06-05] MEDS: cefTRIAXone 1 GM in Sodium Chloride 0.9% 50 ML IV SCH ×2 (00:16→23:01)
[2017-06-05] MEDS ORDERED: metroNIDAZOLE 500mg/NS 100mL 500 MG/100 ML BAG IV ONE (03:35)
[2017-06-05] MEDS: metroNIDAZOLE 500mg/NS 100mL 500 MG/100 ML BAG IV SCH ×3 (04:33→22:22)
[2017-06-05 05:10] LABS: % BASOPHILS 0.9 % (0.0-2.0); % LYMPHOCYTES 10.1 % (20.0-50.0); % MONOCYTES 6.2 % (2.0-10.0); % NEUTROPHILS 81.8 % (40.0-80.0); HEMOGLOBIN 12.4 gm/dL (12-16); MEAN CELL VOLUME 87.5 fl (81-100); MEAN CORPUSCULAR HEMOGLOBIN 29.2 pg (27.0-31.0); MEAN CORPUSCULAR HGB CONC 33.4 pg (28.0-36.0); MEAN PLATELET VOLUME 8.6 fl; NEUTROPHILE ABSOLUTE 11.3 Th/cmm (1.8-8.0); PLATELET COUNT 184 Th/cmm (150-400); RED BLOOD COUNT 4.23 Mil/cmm (3.80-5.20); RED CELL DISTRIBUTION WIDTH 13.7 % (11.5-20.0)
[2017-06-05 05:17] LABS: WHITE BLOOD COUNT 13.7 Th/cmm (4.8-10.8)
[2017-06-05 05:26] LABS: ALB/GLOB RATIO 1.1 (1.0-1.8); ALKALINE PHOSPHATASE 48 U/L (34-104); ANION GAP 8.9 (7.0-16.0); BILIRUBIN,TOTAL 0.6 mg/dL (0.3-1.0); BUN - UREA NITROGEN 11 mg/dL (7-25); BUN/CREATININE RATIO 18.3; CARBON DIOXIDE 24.8 mEq/L (21.0-31.0); CHLORIDE 104 mEq/L (98-107); CREATININE - SERUM 0.6 mg/dL (0.6-1.2); GLUCOSE 116 mg/dL (70-105); POTASSIUM SERUM 3.7 mEq/L (3.5-5.1); SGOT 9 U/L (13-39); SGPT/ALT 9 U/L (7-52); SODIUM SERUM 134 mEq/L (136-145)
[2017-06-05 06:06] LABS: TSH 4.51 uIU/ml (0.34-5.60)
[2017-06-05] MEDS: Levothyroxine 0.1 Mg Tab PO SCH (06:41)
--- NOTE | 2017-06-05 07:47 | Diagnostic Imaging Report ---
Portable chest x-ray Time: 16 00hours History: Chest pain Allowing for portable technique the heart size is normal. No focal pulmonary parenchymal processes. No hilar or mediastinal abnormalities. Impression: No acute abnormalities.
--- NOTE | 2017-06-05 07:56 | Diagnostic Imaging Report ---
Exam: CT examination of the abdomen pelvis. HISTORY: Abdominal pain Total DLP equals 623 CTDI equals 13.1 Findings: Multiple contiguous thin section of the abdomen pelvis obtained from lower thorax to pubic symphysis without the administration of oral or intravenous contrast material. No prior studies available for comparison. Findings: The study demonstrates normal appearance of liver and spleen. The kidneys demonstrate no evidence of obstructive uropathy or nephrolithiasis. The adrenal glands are normal. The gallbladder is distended. Small calculi in the gallbladder consistent with cholelithiasis. The visualized pancreas is intact. The abdominal aorta is calcified. There is evidence of diverticular disease diverticulitis most likely sigmoid colon with the mesenteric induration microperforations cannot be excluded. Less likely neoplastic process. The urinary bladder demonstrates bladder wall thickening. Small right ventral hernia without strangulation. Bony structures demonstrate no evidence for lytic or blastic changes. IMPRESSION: 1. Diverticulosis with diverticulitis at the sigmoid-rectal junction. Microperforation, edema of mesentery. Cholelithiasis distended gallbladder.
[2017-06-05] MEDS: Morphine Sulfate 2 mg/mL 1mL Syr IVP PRN (10:54)
--- NOTE | 2017-06-05 13:20 | History & Physical ---
ADMIT DATE: 06/04/2017 CHIEF COMPLAINT: Abdominal pain. HISTORY OF PRESENT ILLNESS: This is an 86-year-old female with history of bipolar disorder, hypertension, GERD, osteoarthritis, hypercholesterolemia, was admitted from nursing facility secondary to abdominal pain. The patient was evaluated in the ER and found to have UTI and diverticulitis, the patient admitted for further management. PAST MEDICAL HISTORY: As mentioned in history of present illness. PAST SURGICAL HISTORY: Unable to obtain from the patient. ALLERGIES: Per chart, IBUPROFEN. MEDICATIONS: Tylenol, Abilify, clonidine, ____, losartan, ____. FAMILY HISTORY: Noncontributory. SOCIAL HISTORY: The patient in a longterm, requiring 24-hour total care. REVIEW OF SYSTEMS: This is limited secondary to the patient's current mental state. We will try to obtain more detailed review of system at a later date by talking to family members. There is a son, Richard Aleman, and Jude Aleman [phone]. We will also try to get information from nursing staff at [facility] [phone]. PHYSICAL EXAMINATION: VITAL SIGNS: Blood pressure 170/50, respirations 18, pulse 70, temperature ____. GENERAL: Elderly female, appears chronically ill, obese. NECK: Supple, no mass. LUNGS: Equal sounds with few rhonchi. HEART: Regular rate and rhythm without appreciable murmurs with systolic ejection murmur. ABDOMEN: Soft, globular. Positive bowel sounds. EXTREMITIES: Positive excoriations, contractures. LABORATORY DATA: WBC 18.9, hemoglobin 14. Sodium 130, potassium 3.7, BUN 12, creatinine 0.6. Blood sugar 123, albumin was 3.3. Triglyceride 179. ASSESSMENT AND PLAN: Acute diverticulitis, acute abdominal pain, UTI, schizoaffective disorder, obesity, leukocytosis, protein calorie malnutrition, GERD, osteoarthritis, hypercholesterolemia, hypertension. We will continue the patient on IV antibiotic and IV hydration. GI has been consulted. We will also refer the patient to Psychiatry as patient is overtly depressed according to the family. We will continue monitoring closely. Case was discussed with the patient. JOB# [id number]
[2017-06-05] MEDS: D5-0.45NS 1,000 ML IV SCH (14:23)
[2017-06-05] MEDS: Levofloxacin 250mg/50mL 250 MG/50 ML BAG IV SCH (21:01)
[2017-06-06] MEDS: D5-0.45NS 1,000 ML IV SCH (04:32)
[2017-06-06] MEDS: metroNIDAZOLE 500mg/NS 100mL 500 MG/100 ML BAG IV SCH ×3 (05:30→21:12)
[2017-06-06 06:23] LABS: % BASOPHILS 0.7 % (0.0-2.0); % EOSINOPHILS 3.3 % (0.0-5.0); % MONOCYTES 7.4 % (2.0-10.0); % NEUTROPHILS 73.6 % (40.0-80.0); HEMATOCRIT 34.1 % (41.0-60); HEMOGLOBIN 11.6 gm/dL (12-16); MEAN CELL VOLUME 86.5 fl (81-100); MEAN CORPUSCULAR HEMOGLOBIN 29.6 pg (27.0-31.0); MEAN CORPUSCULAR HGB CONC 34.2 pg (28.0-36.0); MEAN PLATELET VOLUME 8.3 fl; NEUTROPHILE ABSOLUTE 7.6 Th/cmm (1.8-8.0); PLATELET COUNT 195 Th/cmm (150-400); RED BLOOD COUNT 3.94 Mil/cmm (3.80-5.20); RED CELL DISTRIBUTION WIDTH 13.6 % (11.5-20.0)
[2017-06-06 06:25] LABS: WHITE BLOOD COUNT 10.3 Th/cmm (4.8-10.8)
[2017-06-06 06:39] LABS: ALB/GLOB RATIO 1.1 (1.0-1.8); ALKALINE PHOSPHATASE 44 U/L (34-104); BILIRUBIN,TOTAL 0.4 mg/dL (0.3-1.0); BUN - UREA NITROGEN 7 mg/dL (7-25); CALCIUM SERUM 8.7 mg/dL (8.6-10.3); CARBON DIOXIDE 24.4 mEq/L (21.0-31.0); CHLORIDE 110 mEq/L (98-107); CREATININE - SERUM 0.5 mg/dL (0.6-1.2); GLUCOSE 118 mg/dL (70-105); POTASSIUM SERUM 3.4 mEq/L (3.5-5.1); SGOT 9 U/L (13-39); SGPT/ALT 7 U/L (7-52); SODIUM SERUM 140 mEq/L (136-145)
[2017-06-06] MEDS: Levothyroxine 0.1 Mg Tab PO SCH (07:22)
[2017-06-06] MEDS ORDERED: Probiotic Screen MC PRN (11:00)
[2017-06-06 11:18] LABS: FOLIC ACID 5.3 ng/mL (>3.0)
--- NOTE | 2017-06-06 13:14 | Internal Medicine Prog Note ---
Internal Medicine Subjective - Subjective Service Date: 06/06/17 Patient seen and examined:: with staff Patient is:: awake Per staff patient has:: tolerating meds Internal Medicine Objective - Results Result Diagrams: 06/06/17 05:35 06/06/17 05:35 Recent Labs: Laboratory Last Values WBC 10.3 Th/cmm (4.8-10.8) D 06/06/17 05:35 RBC 3.94 Mil/cmm (3.80-5.20) 06/06/17 05:35 Hgb 11.6 gm/dL (12-16) L 06/06/17 05:35 Hct 34.1 % (41.0-60) L 06/06/17 05:35 MCV 86.5 fl (81-100) 06/06/17 05:35 MCH 29.6 pg (27.0-31.0) 06/06/17 05:35 MCHC Differential 34.2 pg (28.0-36.0) 06/06/17 05:35 RDW 13.6 % (11.5-20.0) 06/06/17 05:35 Plt Count 195 Th/cmm (150-400) 06/06/17 05:35 MPV 8.3 fl 06/06/17 05:35 Neutrophils % 73.6 % (40.0-80.0) 06/06/17 05:35 Lymphocytes % 15.0 % (20.0-50.0) L 06/06/17 05:35 Monocytes % 7.4 % (2.0-10.0) 06/06/17 05:35 Eosinophils % 3.3 % (0.0-5.0) 06/06/17 05:35 Basophils % 0.7 % (0.0-2.0) 06/06/17 05:35 PT 10.8 SECONDS (9.5-11.5) 06/04/17 15:58 INR 1.04 (0.5-1.4) 06/04/17 15:58 PTT (Actin FS) 27.7 SECONDS (26.0-38.0) 06/04/17 15:58 Sodium 140 mEq/L (136-145) 06/06/17 05:35 Potassium 3.4 mEq/L (3.5-5.1) L 06/06/17 05:35 Chloride 110 mEq/L (98-107) H 06/06/17 05:35 Carbon Dioxide 24.4 mEq/L (21.0-31.0) 06/06/17 05:35 Anion Gap 9.0 (7.0-16.0) 06/06/17 05:35 BUN 7 mg/dL (7-25) 06/06/17 05:35 Creatinine 0.5 mg/dL (0.6-1.2) L 06/06/17 05:35 Est GFR ( Amer) TNP 06/06/17 05:35 Est GFR (Non-Af Amer) TNP 06/06/17 05:35 BUN/Creatinine Ratio 14.0 06/06/17 05:35 Glucose 118 mg/dL (70-105) H 06/06/17 05:35 POC Glucose 127 MG/DL (70 - 105) H 06/04/17 20:42 Hemoglobin A1c % 5.8 % (4.0-6.0) 06/05/17 04:29 Whole Bld Lactic Acid 1.55 mmol/L (0.60-1.99) 06/04/17 15:58 Calcium 8.7 mg/dL (8.6-10.3) 06/06/17 05:35 Total Bilirubin 0.4 mg/dL (0.3-1.0) 06/06/17 05:35 AST 9 U/L (13-39) L 06/06/17 05:35 ALT 7 U/L (7-52) 06/06/17 05:35 Alkaline Phosphatase 44 U/L (34-104) 06/06/17 05:35 Ammonia 44 umol/L (16-53) 06/05/17 04:29 Creatine Kinase 14 U/L (30-223) L 06/04/17 15:58 Troponin I 0.01 ng/mL (0.01-0.05) 06/04/17 15:58 B-Natriuretic Peptide 149.0 pg/mL (5.0-100.0) H 06/04/17 15:58 Total Protein 5.8 gm/dL (6.0-8.3) L 06/06/17 05:35 Albumin 3.0 gm/dL (3.7-5.3) L 06/06/17 05:35 Globulin 2.8 gm/dL 06/06/17 05:35 Albumin/Globulin Ratio 1.1 (1.0-1.8) 06/06/17 05:35 Triglycerides 179 mg/dL (<150) H 06/04/17 15:58 Cholesterol 158 mg/dL (<200) 06/04/17 15:58 LDL Cholesterol Direct 101 mg/dL (75-193) 06/04/17 15:58 HDL Cholesterol 42 mg/dL (23-92) 06/04/17 15:58 Amylase 38 U/L (29-103) 06/04/17 15:58 Lipase 31 U/L (11-82) 06/04/17 15:58 Vitamin B12 568 pg/mL (211-946) 06/05/17 04:29 Folic Acid 5.3 ng/mL (>3.0) 06/05/17 04:29 TSH 4.51 uIU/ml (0.34-5.60) 06/05/17 04:29 - Physical Exam Vitals and I&O: Vital Signs Temp 98.2 F 06/06/17 11:00 Pulse 86 06/06/17 11:00 Resp 18 06/06/17 11:00 BP 142/78 06/06/17 11:00 Pulse Ox 94 06/06/17 11:00 Intake & Output 06/05/17 06/06/17 06/06/17 18:59 06:59 18:59 Intake Total 1600 1090.5 Output Total 1 Balance 1599 1090.5 Weight (lbs) 143 lb Intake: Intake, IV Amount 1100 1090.5 D5-0.45NS 1,000 ml @ 70 1000 990.5 mls/hr IV .[id number] [facility] Rx #:[id number] metroNIDAZOLE 500mg/NS 100 100 100mL 500 mg In 100 ml @ 100 mls/hr IV Q8HR [facility] Rx #:[id number] Oral 500 Output: Stool 1 Other: # Voids 3 Active Medications: Current Medications Acetaminophen (Tylenol) 650 mg PO Q6HR PRN PRN Reason: Pain (Mild) Stop: 08/03/17 21:50 Last Admin: 06/05/17 06:40 Dose: 650 mg Al Hydrox/Mg Hydrox/Simethicone (Maalox) 30 ml PO Q6H PRN PRN Reason: Dyspepsia Stop: 08/03/17 21:51 Albuterol Sulfate (Albuterol 2.5mg/3ml Neb Ud) 2.5 mg HHN Q2HRT PRN PRN Reason: Shortness of Breath or Wheeze Stop: 08/03/17 21:51 Aripiprazole (Abilify) 1 mg PO HS [facility] PRN Reason: Protocol Stop: 08/03/17 20:59 Last Admin: 06/05/17 21:22 Dose: Not Given Bisacodyl (Dulcolax 10 Mg Supp) 10 mg RC Q24H PRN PRN Reason: Constipation Stop: 08/03/17 21:50 Cholecalciferol (Vitamin D3) 5,000 iu PO DAILY [facility] Stop: 08/04/17 08:59 Last Admin: 06/06/17 08:04 Dose: Not Given Docusate Sodium (Colace) 100 mg PO DAILY [facility] Stop: 08/04/17 08:59 Last Admin: 06/06/17 08:04 Dose: Not Given Famotidine (Pepcid) 20 mg IVP Q12H [facility] Stop: 08/03/17 21:59 Last Admin: 06/06/17 10:54 Dose: 20 mg Gabapentin (Neurontin) 300 mg PO HS [facility] Stop: 08/04/17 20:59 Last Admin: 06/05/17 21:22 Dose: Not Given Dextrose/Sodium Chloride (D5-0.45ns) 1,000 mls @ 70 mls/hr IV .[id number] [facility] Stop: 08/03/17 21:59 Last Admin: 06/06/17 04:32 Dose: 70 mls/hr Levofloxacin (Levaquin Pb) 250 mg in 50 mls @ 50 mls/hr IV Q24HR [facility] Stop: 08/04/17 20:59 Last Admin: 06/05/17 21:01 Dose: 50 mls/hr Metronidazole (Flagyl) 500 mg in 100 mls @ 100 mls/hr IV Q8HR [facility] Stop: 08/04/17 04:59 Last Admin: 06/06/17 05:30 Dose: 100 mls/hr Lactobacillus Rhamnosus (Culturelle) 1 each PO DAILY [facility] Stop: 08/06/17 08:59 Levothyroxine Sodium (Synthroid) 0.1 mg PO QDAC [facility] Stop: 08/04/17 07:29 Last Admin: 06/06/17 07:22 Dose: Not Given Lorazepam (Ativan) 0.5 mg IV Q12H PRN; Protocol PRN Reason: Agitation Stop: 08/04/17 13:25 Last Admin: 06/06/17 10:54 Dose: 0.5 mg Losartan Potassium (Cozaar) 50 mg PO DAILY [facility] Stop: 08/04/17 08:59 Last Admin: 06/06/17 08:04 Dose: Not Given Magnesium Hydroxide (Milk Of Magnesia) 30 ml PO Q24H PRN PRN Reason: IF NO BM IN THREE DAYS Stop: 08/03/17 21:50 Miscellaneous (Probiotic Screen) 1 ea [facility] PRN PRN PRN Reason: PROTOCOL Stop: 08/05/17 10:59 Morphine Sulfate (Morphine) 2 mg IVP Q4H PRN PRN Reason: Pain (Severe) Stop: 08/03/17 21:51 Last Admin: 06/05/17 10:54 Dose: 2 mg Ondansetron HCl (Zofran) 4 mg IV Q8H PRN PRN Reason: Nausea / Vomiting Stop: 08/03/17 21:53 Quetiapine Fumarate (Seroquel) 75 mg PO DAILY MARICEL PRN Reason: Protocol Stop: 08/04/17 08:59 Last Admin: 06/05/17 08:43 Dose: 75 mg General: weak HEENT: NC/AT, PERRLA Neck: Supple Lungs: CTAB Cardiovascular: RRR, Normal S1, Normal S2, without murmur Abdomen: soft, non-tender, non-distended, positive bowel sound Neurological: unable to follow command Internal Medicine Assmt/Plan - Assessment Assessment: ACUTE DIVERTICULITIS ACUTE ABDOMINAL PAIN ACUTE UTI SCHIZOAFFECTIVE DISORDER OBESITY HYPERCHOLESTEREMIA HTN - Plan Plan: continue iv antibiotics ivf for hydration gi f/u monitor electrolytes continue current plan of care
[2017-06-06] MEDS ORDERED: Potassium Chloride 20 mEq ER Tab PO ONE (13:16)
[2017-06-06] MEDS: Morphine Sulfate 2 mg/mL 1mL Syr IVP PRN (15:48)
[2017-06-06] MEDS: Levofloxacin 250mg/50mL 250 MG/50 ML BAG IV SCH (21:10)
--- NOTE | 2017-06-06 21:50 | Consultation ---
DATE OF CONSULTATION: 06/05/2017 REASON FOR CONSULTATION: Diverticulitis with microperforation. HISTORY OF PRESENT ILLNESS: This consult was obtained through the courtesy of Dr. Lang for this 86-year-old with history of deafness, hypertension, GERD, osteoarthritis, hyperlipidemia, admitted from the retirement for abdominal pain, found to have acute diverticulitis with microperforation. The patient was hard to communicate with. PAST MEDICAL HISTORY: Hypertension, osteoarthritis, bipolar disorder, and deaf. PAST SURGICAL HISTORY: Not known. SOCIAL HISTORY: Nonsmoker, nonalcoholic, IV drug abuser. FAMILY HISTORY: Noncontributory. ALLERGIES: IBUPROFEN. MEDICATIONS: Tylenol, Abilify, clonidine, and losartan. REVIEW OF SYSTEMS: Unobtainable. PHYSICAL EXAMINATION: GENERAL: The patient is awake, responsive, and noncommunicating. VITAL SIGNS: Blood pressure was 117/53, heart rate was 74, respiratory rate was 14, and temperature was 99.4 with T-max 100.0. HEAD AND NECK: Pupils are reactive to light and accommodation. Extraocular muscles could not be tested. Oral cavity, no lesion. NECK: Supple, no jugular venous distention, and no carotid bruit or lymph nodes. CHEST: Good respiratory movements. LUNGS: Clear to auscultation. CARDIOVASCULAR: Regular rate and rhythm. No murmur or gallop. ABDOMEN: Soft. Positive bowel sound. Positive left lower quadrant tenderness. EXTREMITIES: No edema. CENTRAL NERVOUS SYSTEM: The patient is moving 4 extremities. Otherwise, hard to evaluate. LABORATORY DATA: White count was about 18,000, dropped to 13. CAT scan showed diverticulosis with diverticulitis of the rectosigmoid area with microperforation and edema of the mesentery. IMPRESSION: This is an 86-year-old with acute diverticulitis with microperforation. RECOMMENDATIONS: 1. Keep the patient n.p.o. except symptomatic. 2. IV fluids. 3. IV antibiotics. 4. Surgical consult if the patient is not improving. 5. If the patient continues to improve in a couple of days, advance diet to clear liquid and then further recommendations to follow. Other medical problems such as hypertension, bipolar disorder, etc., as per Dr. Lang. Thank you, Dr. Lang for allowing me to participate in the care of the patient. If you have any further questions, please let me know. JOB# [id number] MTDD
[2017-06-07] MEDS: D5-0.45NS 1,000 ML IV SCH ×2 (01:17→22:54)
[2017-06-07] MEDS: metroNIDAZOLE 500mg/NS 100mL 500 MG/100 ML BAG IV SCH ×3 (04:33→21:16)
[2017-06-07 06:14] LABS: % EOSINOPHILS 4.9 % (0.0-5.0); % LYMPHOCYTES 17.3 % (20.0-50.0); % MONOCYTES 8.3 % (2.0-10.0); % NEUTROPHILS 69.5 % (40.0-80.0); HEMOGLOBIN 13.2 gm/dL (12-16); MEAN CELL VOLUME 87.2 fl (81-100); MEAN CORPUSCULAR HEMOGLOBIN 29.1 pg (27.0-31.0); MEAN CORPUSCULAR HGB CONC 33.4 pg (28.0-36.0); MEAN PLATELET VOLUME 7.8 fl; NEUTROPHILE ABSOLUTE 5.5 Th/cmm (1.8-8.0); RED BLOOD COUNT 4.52 Mil/cmm (3.80-5.20); RED CELL DISTRIBUTION WIDTH 13.6 % (11.5-20.0)
[2017-06-07 06:25] LABS: HEMATOCRIT 39.4 % (41.0-60); PLATELET COUNT 237 Th/cmm (150-400); WHITE BLOOD COUNT 7.8 Th/cmm (4.8-10.8)
[2017-06-07 06:27] LABS: ALB/GLOB RATIO 1.2 (1.0-1.8); ALKALINE PHOSPHATASE 49 U/L (34-104); ANION GAP 7.8 (7.0-16.0); BILIRUBIN,TOTAL 0.5 mg/dL (0.3-1.0); BUN - UREA NITROGEN 6 mg/dL (7-25); CALCIUM SERUM 9.2 mg/dL (8.6-10.3); CARBON DIOXIDE 25.9 mEq/L (21.0-31.0); CHLORIDE 110 mEq/L (98-107); CREATININE - SERUM 0.6 mg/dL (0.6-1.2); GLUCOSE 111 mg/dL (70-105); MAGNESIUM 1.9 mg/dL (1.9-2.7); POTASSIUM SERUM 3.7 mEq/L (3.5-5.1); SGOT 13 U/L (13-39); SGPT/ALT 7 U/L (7-52); SODIUM SERUM 140 mEq/L (136-145)
[2017-06-07] MEDS: Levothyroxine 0.1 Mg Tab PO SCH (06:33)
[2017-06-07] MEDS: Lactobacillus Rhamnosus 10 Billion CFU Capsule PO SCH (08:33)
[2017-06-07] MEDS ORDERED: Sodium Chloride 0.9% 250 ML IV SCH (10:30)
[2017-06-07] MEDS ORDERED: Potassium Phosphate 30 MMOLE in Sodium Chloride 0.9% 250 ML IV ONE (14:44)
[2017-06-07] MEDS ORDERED: TPN 10%-70% CUSTOM IV SCH (16:00)
--- NOTE | 2017-06-07 19:10 | Internal Medicine Prog Note ---
Internal Medicine Subjective - Subjective Service Date: 06/07/17 Patient seen and examined:: with staff Patient is:: awake Per staff patient has:: tolerating meds Internal Medicine Objective - Results Result Diagrams: 06/07/17 05:50 06/07/17 05:50 Recent Labs: Laboratory Last Values WBC 7.8 Th/cmm (4.8-10.8) D 06/07/17 05:50 RBC 4.52 Mil/cmm (3.80-5.20) 06/07/17 05:50 Hgb 13.2 gm/dL (12-16) 06/07/17 05:50 Hct 39.4 % (41.0-60) L D 06/07/17 05:50 MCV 87.2 fl (81-100) 06/07/17 05:50 MCH 29.1 pg (27.0-31.0) 06/07/17 05:50 MCHC Differential 33.4 pg (28.0-36.0) 06/07/17 05:50 RDW 13.6 % (11.5-20.0) 06/07/17 05:50 Plt Count 237 Th/cmm (150-400) D 06/07/17 05:50 MPV 7.8 fl 06/07/17 05:50 Neutrophils % 69.5 % (40.0-80.0) 06/07/17 05:50 Lymphocytes % 17.3 % (20.0-50.0) L 06/07/17 05:50 Monocytes % 8.3 % (2.0-10.0) 06/07/17 05:50 Eosinophils % 4.9 % (0.0-5.0) 06/07/17 05:50 Basophils % 0.0 % (0.0-2.0) 06/07/17 05:50 PT 10.8 SECONDS (9.5-11.5) 06/04/17 15:58 INR 1.04 (0.5-1.4) 06/04/17 15:58 PTT (Actin FS) 27.7 SECONDS (26.0-38.0) 06/04/17 15:58 Sodium 140 mEq/L (136-145) 06/07/17 05:50 Potassium 3.7 mEq/L (3.5-5.1) 06/07/17 05:50 Chloride 110 mEq/L (98-107) H 06/07/17 05:50 Carbon Dioxide 25.9 mEq/L (21.0-31.0) 06/07/17 05:50 Anion Gap 7.8 (7.0-16.0) 06/07/17 05:50 BUN 6 mg/dL (7-25) L 06/07/17 05:50 Creatinine 0.6 mg/dL (0.6-1.2) 06/07/17 05:50 Est GFR ( Amer) TNP 06/07/17 05:50 Est GFR (Non-Af Amer) TNP 06/07/17 05:50 BUN/Creatinine Ratio 10.0 06/07/17 05:50 Glucose 111 mg/dL (70-105) H 06/07/17 05:50 POC Glucose 127 MG/DL (70 - 105) H 06/04/17 20:42 Hemoglobin A1c % 5.8 % (4.0-6.0) 06/05/17 04:29 Whole Bld Lactic Acid 1.55 mmol/L (0.60-1.99) 06/04/17 15:58 Calcium 9.2 mg/dL (8.6-10.3) 06/07/17 05:50 Phosphorus 2.3 mg/dL (2.5-5.0) L 06/07/17 05:50 Magnesium 1.9 mg/dL (1.9-2.7) 06/07/17 05:50 Total Bilirubin 0.5 mg/dL (0.3-1.0) 06/07/17 05:50 AST 13 U/L (13-39) 06/07/17 05:50 ALT 7 U/L (7-52) 06/07/17 05:50 Alkaline Phosphatase 49 U/L (34-104) 06/07/17 05:50 Ammonia 44 umol/L (16-53) 06/05/17 04:29 Creatine Kinase 14 U/L (30-223) L 06/04/17 15:58 Troponin I 0.01 ng/mL (0.01-0.05) 06/04/17 15:58 B-Natriuretic Peptide 149.0 pg/mL (5.0-100.0) H 06/04/17 15:58 Total Protein 6.7 gm/dL (6.0-8.3) 06/07/17 05:50 Albumin 3.6 gm/dL (3.7-5.3) L 06/07/17 05:50 Globulin 3.1 gm/dL 06/07/17 05:50 Albumin/Globulin Ratio 1.2 (1.0-1.8) 06/07/17 05:50 Triglycerides 156 mg/dL (<150) H 06/07/17 05:50 Cholesterol 158 mg/dL (<200) 06/04/17 15:58 LDL Cholesterol Direct 101 mg/dL (75-193) 06/04/17 15:58 HDL Cholesterol 42 mg/dL (23-92) 06/04/17 15:58 Amylase 38 U/L (29-103) 06/04/17 15:58 Lipase 31 U/L (11-82) 06/04/17 15:58 Vitamin B12 568 pg/mL (211-946) 06/05/17 04:29 Folic Acid 5.3 ng/mL (>3.0) 06/05/17 04:29 TSH 4.51 uIU/ml (0.34-5.60) 06/05/17 04:29 - Physical Exam Vitals and I&O: Vital Signs Temp 97.1 F 06/07/17 16:00 Pulse 88 06/07/17 18:01 Resp 18 06/07/17 16:00 BP 145/87 06/07/17 18:01 Pulse Ox 97 06/07/17 16:00 Intake & Output 06/07/17 06/07/17 06/08/17 06:59 18:59 06:59 Intake Total 250 Balance 250 Weight (lbs) 143 lb 143 lb Intake: Intake, IV Amount 250 Levofloxacin 250mg/50mL 50 250 mg In 50 ml @ 50 mls/ hr IV Q24HR [facility] Rx#: [id number] metroNIDAZOLE 500mg/NS 200 100mL 500 mg In 100 ml @ 100 mls/hr IV Q8HR [facility] Rx #:[id number] Other: # Voids 3 Active Medications: Current Medications Acetaminophen (Tylenol) 650 mg PO Q6HR PRN PRN Reason: Pain (Mild) Stop: 08/03/17 21:50 Last Admin: 06/05/17 06:40 Dose: 650 mg Al Hydrox/Mg Hydrox/Simethicone (Maalox) 30 ml PO Q6H PRN PRN Reason: Dyspepsia Stop: 08/03/17 21:51 Albuterol Sulfate (Albuterol 2.5mg/3ml Neb Ud) 2.5 mg HHN Q2HRT PRN PRN Reason: Shortness of Breath or Wheeze Stop: 08/03/17 21:51 Aripiprazole (Abilify) 1 mg PO HS [facility] PRN Reason: Protocol Stop: 08/03/17 20:59 Last Admin: 06/06/17 21:10 Dose: 1 mg Bisacodyl (Dulcolax 10 Mg Supp) 10 mg RC Q24H PRN PRN Reason: Constipation Stop: 08/03/17 21:50 Cholecalciferol (Vitamin D3) 5,000 iu PO DAILY [facility] Stop: 08/04/17 08:59 Last Admin: 06/07/17 08:33 Dose: Not Given Diphenhydramine HCl (Benadryl 50 Mg/Ml) 25 mg IVP Q8HR PRN PRN Reason: Agitation Stop: 08/06/17 15:48 Docusate Sodium (Colace) 100 mg PO BID [facility] Stop: 08/06/17 16:59 Last Admin: 06/07/17 16:20 Dose: 100 mg Famotidine (Pepcid) 20 mg IVP Q12H [facility] Stop: 08/03/17 21:59 Last Admin: 06/07/17 10:46 Dose: 20 mg Gabapentin (Neurontin) 300 mg PO HS [facility] Stop: 08/04/17 20:59 Last Admin: 06/06/17 21:10 Dose: 300 mg Dextrose/Sodium Chloride (D5-0.45ns) 1,000 mls @ 70 mls/hr IV .[id number] [facility] Stop: 07/08/17 21:59 Last Admin: 06/07/17 01:17 Dose: 70 mls/hr Levofloxacin (Levaquin Pb) 250 mg in 50 mls @ 50 mls/hr IV Q24HR [facility] Stop: 08/04/17 20:59 Last Infusion: 06/06/17 22:10 Dose: Infused Metronidazole (Flagyl) 500 mg in 100 mls @ 100 mls/hr IV Q8HR [facility] Stop: 08/04/17 04:59 Last Admin: 06/07/17 12:09 Dose: 100 mls/hr Lactobacillus Rhamnosus (Culturelle) 1 each PO DAILY [facility] Stop: 08/06/17 08:59 Last Admin: 06/07/17 08:33 Dose: Not Given Levothyroxine Sodium (Synthroid) 0.1 mg PO QDAC [facility] Stop: 08/04/17 07:29 Last Admin: 06/07/17 06:33 Dose: Not Given Losartan Potassium (Cozaar) 50 mg PO DAILY [facility] Stop: 08/04/17 08:59 Last Admin: 06/07/17 08:34 Dose: Not Given Magnesium Hydroxide (Milk Of Magnesia) 30 ml PO Q24H PRN PRN Reason: IF NO BM IN THREE DAYS Stop: 08/03/17 21:50 Miscellaneous (Probiotic Screen) 1 ea [facility] PRN PRN PRN Reason: PROTOCOL Stop: 08/05/17 10:59 Morphine Sulfate (Morphine) 2 mg IVP Q4H PRN PRN Reason: Pain (Severe) Stop: 08/03/17 21:51 Last Admin: 06/06/17 15:48 Dose: 2 mg Ondansetron HCl (Zofran) 4 mg IV Q8H PRN PRN Reason: Nausea / Vomiting Stop: 08/03/17 21:53 Quetiapine Fumarate (Seroquel) 75 mg PO DAILY [facility] PRN Reason: Protocol Stop: 08/04/17 08:59 Last Admin: 06/07/17 08:35 Dose: Not Given General: weak HEENT: NC/AT, PERRLA Neck: Supple Lungs: CTAB Cardiovascular: RRR, Normal S1, Normal S2, without murmur Abdomen: soft, non-tender, non-distended, positive bowel sound Neurological: unable to follow command Internal Medicine Assmt/Plan - Assessment Assessment: ACUTE DIVERTICULITIS ACUTE ABDOMINAL PAIN ACUTE UTI SCHIZOAFFECTIVE DISORDER OBESITY HYPERCHOLESTEREMIA HTN - Plan Plan: continue iv antibiotics ivf for hydration gi f/u am labs monitor electrolytes continue current plan of care
[2017-06-07] MEDS: Levofloxacin 250mg/50mL 250 MG/50 ML BAG IV SCH (20:31)
[2017-06-08] MEDS: metroNIDAZOLE 500mg/NS 100mL 500 MG/100 ML BAG IV SCH ×3 (04:48→22:11)
[2017-06-08] MEDS: Levothyroxine 0.1 Mg Tab PO SCH (06:36)
[2017-06-08 07:18] LABS: % BASOPHILS 0.8 % (0.0-2.0); % EOSINOPHILS 4.6 % (0.0-5.0); % LYMPHOCYTES 21.1 % (20.0-50.0); % MONOCYTES 11.6 % (2.0-10.0); % NEUTROPHILS 61.9 % (40.0-80.0); HEMATOCRIT 40.1 % (41.0-60); HEMOGLOBIN 13.5 gm/dL (12-16); MEAN CORPUSCULAR HEMOGLOBIN 28.9 pg (27.0-31.0); MEAN CORPUSCULAR HGB CONC 33.6 pg (28.0-36.0); MEAN PLATELET VOLUME 8.2 fl; NEUTROPHILE ABSOLUTE 4.8 Th/cmm (1.8-8.0); PLATELET COUNT 240 Th/cmm (150-400); RED BLOOD COUNT 4.66 Mil/cmm (3.80-5.20); RED CELL DISTRIBUTION WIDTH 13.6 % (11.5-20.0); WHITE BLOOD COUNT 7.9 Th/cmm (4.8-10.8)
[2017-06-08 07:38] LABS: ALB/GLOB RATIO 1.2 (1.0-1.8); ALKALINE PHOSPHATASE 44 U/L (34-104); ANION GAP 10.2 (7.0-16.0); BILIRUBIN,TOTAL 0.5 mg/dL (0.3-1.0); BUN - UREA NITROGEN 7 mg/dL (7-25); CARBON DIOXIDE 24.5 mEq/L (21.0-31.0); CHLORIDE 110 mEq/L (98-107); CREATININE - SERUM 0.7 mg/dL (0.6-1.2); GLUCOSE 109 mg/dL (70-105); LIPASE 11 U/L (11-82); MAGNESIUM 1.8 mg/dL (1.9-2.7); POTASSIUM SERUM 3.7 mEq/L (3.5-5.1); SGOT 14 U/L (13-39); SGPT/ALT 9 U/L (7-52); SODIUM SERUM 141 mEq/L (136-145)
[2017-06-08] MEDS: Lactobacillus Rhamnosus 10 Billion CFU Capsule PO SCH (09:52)
--- NOTE | 2017-06-08 10:35 | GI Progress Note ---
Subjective - Review of Systems Service Date: 06/08/17 Subjective: Did not each much for breakfast, no new pain issues. Objective - Results Result Diagrams: 06/08/17 06:23 06/08/17 06:23 Recent Labs: Laboratory Last Values WBC 7.9 Th/cmm (4.8-10.8) 06/08/17 06:23 RBC 4.66 Mil/cmm (3.80-5.20) 06/08/17 06:23 Hgb 13.5 gm/dL (12-16) 06/08/17 06:23 Hct 40.1 % (41.0-60) L 06/08/17 06:23 MCV 86.0 fl (81-100) 06/08/17 06:23 MCH 28.9 pg (27.0-31.0) 06/08/17 06:23 MCHC Differential 33.6 pg (28.0-36.0) 06/08/17 06:23 RDW 13.6 % (11.5-20.0) 06/08/17 06:23 Plt Count 240 Th/cmm (150-400) 06/08/17 06:23 MPV 8.2 fl 06/08/17 06:23 Neutrophils % 61.9 % (40.0-80.0) 06/08/17 06:23 Lymphocytes % 21.1 % (20.0-50.0) 06/08/17 06:23 Monocytes % 11.6 % (2.0-10.0) H 06/08/17 06:23 Eosinophils % 4.6 % (0.0-5.0) 06/08/17 06:23 Basophils % 0.8 % (0.0-2.0) 06/08/17 06:23 PT 10.8 SECONDS (9.5-11.5) 06/04/17 15:58 INR 1.04 (0.5-1.4) 06/04/17 15:58 PTT (Actin FS) 27.7 SECONDS (26.0-38.0) 06/04/17 15:58 Sodium 141 mEq/L (136-145) 06/08/17 06:23 Potassium 3.7 mEq/L (3.5-5.1) 06/08/17 06:23 Chloride 110 mEq/L (98-107) H 06/08/17 06:23 Carbon Dioxide 24.5 mEq/L (21.0-31.0) 06/08/17 06:23 Anion Gap 10.2 (7.0-16.0) 06/08/17 06:23 BUN 7 mg/dL (7-25) 06/08/17 06:23 Creatinine 0.7 mg/dL (0.6-1.2) 06/08/17 06:23 Est GFR ( Amer) TNP 06/08/17 06:23 Est GFR (Non-Af Amer) TNP 06/08/17 06:23 BUN/Creatinine Ratio 10.0 06/08/17 06:23 Glucose 109 mg/dL (70-105) H 06/08/17 06:23 POC Glucose 125 MG/DL (70 - 105) H 06/08/17 05:07 Hemoglobin A1c % 5.8 % (4.0-6.0) 06/05/17 04:29 Whole Bld Lactic Acid 1.55 mmol/L (0.60-1.99) 06/04/17 15:58 Calcium 9.0 mg/dL (8.6-10.3) 06/08/17 06:23 Phosphorus 3.0 mg/dL (2.5-5.0) 06/08/17 06:23 Magnesium 1.8 mg/dL (1.9-2.7) L 06/08/17 06:23 Total Bilirubin 0.5 mg/dL (0.3-1.0) 06/08/17 06:23 AST 14 U/L (13-39) 06/08/17 06:23 ALT 9 U/L (7-52) 06/08/17 06:23 Alkaline Phosphatase 44 U/L (34-104) 06/08/17 06:23 Ammonia 44 umol/L (16-53) 06/05/17 04:29 Creatine Kinase 14 U/L (30-223) L 06/04/17 15:58 Troponin I 0.01 ng/mL (0.01-0.05) 06/04/17 15:58 B-Natriuretic Peptide 149.0 pg/mL (5.0-100.0) H 06/04/17 15:58 Total Protein 6.1 gm/dL (6.0-8.3) 06/08/17 06:23 Albumin 3.3 gm/dL (3.7-5.3) L 06/08/17 06:23 Globulin 2.8 gm/dL 06/08/17 06:23 Albumin/Globulin Ratio 1.2 (1.0-1.8) 06/08/17 06:23 Triglycerides 156 mg/dL (<150) H 06/07/17 05:50 Cholesterol 158 mg/dL (<200) 06/04/17 15:58 LDL Cholesterol Direct 101 mg/dL (75-193) 06/04/17 15:58 HDL Cholesterol 42 mg/dL (23-92) 06/04/17 15:58 Amylase 38 U/L (29-103) 06/04/17 15:58 Lipase 11 U/L (11-82) 06/08/17 06:23 Vitamin B12 568 pg/mL (211-946) 06/05/17 04:29 Folic Acid 5.3 ng/mL (>3.0) 06/05/17 04:29 TSH 4.51 uIU/ml (0.34-5.60) 06/05/17 04:29 - Physical Exam Vitals and I&O: Vital Signs Temp 97.6 F 06/08/17 04:00 Pulse 64 06/08/17 09:54 Resp 16 06/08/17 07:30 BP 144/60 06/08/17 09:54 Pulse Ox 95 06/08/17 07:30 Intake & Output 06/07/17 06/08/17 06/08/17 18:59 06:59 18:59 Intake Total 1100 450 Balance 1100 450 Weight (lbs) 64.864 kg 64.864 kg Intake: Intake, IV Amount 1100 250 D5-0.45NS 1,000 ml @ 70 1000 mls/hr IV .[id number] [facility] Rx #:[id number] Levofloxacin 250mg/50mL 50 250 mg In 50 ml @ 50 mls/ hr IV Q24HR [facility] Rx#: [id number] metroNIDAZOLE 500mg/NS 100 200 100mL 500 mg In 100 ml @ 100 mls/hr IV Q8HR [facility] Rx #:[id number] Oral 200 Other: # Voids 2 Active Medications: Current Medications Acetaminophen (Tylenol) 650 mg PO Q6HR PRN PRN Reason: Pain (Mild) Stop: 08/03/17 21:50 Last Admin: 06/05/17 06:40 Dose: 650 mg Al Hydrox/Mg Hydrox/Simethicone (Maalox) 30 ml PO Q6H PRN PRN Reason: Dyspepsia Stop: 08/03/17 21:51 Albuterol Sulfate (Albuterol 2.5mg/3ml Neb Ud) 2.5 mg HHN Q2HRT PRN PRN Reason: Shortness of Breath or Wheeze Stop: 08/03/17 21:51 Bisacodyl (Dulcolax 10 Mg Supp) 10 mg RC Q24H PRN PRN Reason: Constipation Stop: 08/03/17 21:50 Cholecalciferol (Vitamin D3) 5,000 iu PO DAILY [facility] Stop: 08/04/17 08:59 Last Admin: 06/08/17 09:52 Dose: 5,000 iu Diphenhydramine HCl (Benadryl 50 Mg/Ml) 25 mg IVP Q8HR PRN PRN Reason: Agitation Stop: 08/06/17 15:48 Docusate Sodium (Colace) 100 mg PO BID [facility] Stop: 08/06/17 16:59 Last Admin: 06/08/17 09:53 Dose: 100 mg Famotidine (Pepcid) 20 mg IVP Q12H [facility] Stop: 08/03/17 21:59 Last Admin: 06/08/17 09:40 Dose: 20 mg Gabapentin (Neurontin) 300 mg PO HS [facility] Stop: 08/04/17 20:59 Last Admin: 06/07/17 21:17 Dose: 300 mg Dextrose/Sodium Chloride (D5-0.45ns) 1,000 mls @ 70 mls/hr IV .[id number] [facility] Stop: 07/08/17 21:59 Last Admin: 06/07/17 22:54 Dose: 70 mls/hr Levofloxacin (Levaquin Pb) 250 mg in 50 mls @ 50 mls/hr IV Q24HR [facility] Stop: 08/04/17 20:59 Last Infusion: 06/07/17 21:31 Dose: Infused Metronidazole (Flagyl) 500 mg in 100 mls @ 100 mls/hr IV Q8HR [facility] Stop: 08/04/17 04:59 Last Infusion: 06/08/17 05:48 Dose: Infused Lactobacillus Rhamnosus (Culturelle) 1 each PO DAILY [facility] Stop: 08/06/17 08:59 Last Admin: 06/08/17 09:52 Dose: 1 each Levothyroxine Sodium (Synthroid) 0.1 mg PO QDAC [facility] Stop: 08/04/17 07:29 Last Admin: 06/08/17 06:36 Dose: 0.1 mg Losartan Potassium (Cozaar) 50 mg PO DAILY [facility] Stop: 08/04/17 08:59 Last Admin: 06/08/17 09:54 Dose: 50 mg Magnesium Hydroxide (Milk Of Magnesia) 30 ml PO Q24H PRN PRN Reason: IF NO BM IN THREE DAYS Stop: 08/03/17 21:50 Miscellaneous (Probiotic Screen) 1 ea [facility] PRN PRN PRN Reason: PROTOCOL Stop: 08/05/17 10:59 Morphine Sulfate (Morphine) 2 mg IVP Q4H PRN PRN Reason: Pain (Severe) Stop: 08/03/17 21:51 Last Admin: 06/06/17 15:48 Dose: 2 mg Ondansetron HCl (Zofran) 4 mg IV Q8H PRN PRN Reason: Nausea / Vomiting Stop: 08/03/17 21:53 Quetiapine Fumarate (Seroquel) 100 mg PO HS [facility] PRN Reason: Protocol Stop: 08/07/17 20:59 Quetiapine Fumarate (Seroquel) 25 mg PO BID PRN; Protocol PRN Reason: Agitation Stop: 08/07/17 08:59 General: Alert, No acute distress Abdomen: Bowel sounds, Soft, Other (no rebound or guarding) Assessment/Plan - Problem List Patient Problems: All Active Problems GENERALIZED ABDOMINAL PAIN WITH DISTENTI (Acute) - Assessment Assessment: # Diverticulitis with microperforation Tolerating clears, although does not each much. Will stay on clears today and advance if she tolerates this without pain - Clears today. Advance to full tomorrow if no pain or other complication - If she worsens, would need surgery consultation for complicated diverticulitis - cont abx, will need full 7 day course
--- NOTE | 2017-06-08 13:25 | Internal Medicine Prog Note ---
Internal Medicine Subjective - Subjective Patient seen and examined:: with staff, chart reviewed Patient is:: awake, verbal, interactive, agitated, confused Patient Complaints of:: unable to sleep Per staff patient has:: no adverse event, poor appetite, poor oral intake, agitated, refusing care, refusing labs Internal Medicine Objective - Results Result Diagrams: 06/08/17 06:23 06/08/17 06:23 Recent Labs: Laboratory Last Values WBC 7.9 Th/cmm (4.8-10.8) 06/08/17 06:23 RBC 4.66 Mil/cmm (3.80-5.20) 06/08/17 06:23 Hgb 13.5 gm/dL (12-16) 06/08/17 06:23 Hct 40.1 % (41.0-60) L 06/08/17 06:23 MCV 86.0 fl (81-100) 06/08/17 06:23 MCH 28.9 pg (27.0-31.0) 06/08/17 06:23 MCHC Differential 33.6 pg (28.0-36.0) 06/08/17 06:23 RDW 13.6 % (11.5-20.0) 06/08/17 06:23 Plt Count 240 Th/cmm (150-400) 06/08/17 06:23 MPV 8.2 fl 06/08/17 06:23 Neutrophils % 61.9 % (40.0-80.0) 06/08/17 06:23 Lymphocytes % 21.1 % (20.0-50.0) 06/08/17 06:23 Monocytes % 11.6 % (2.0-10.0) H 06/08/17 06:23 Eosinophils % 4.6 % (0.0-5.0) 06/08/17 06:23 Basophils % 0.8 % (0.0-2.0) 06/08/17 06:23 PT 10.8 SECONDS (9.5-11.5) 06/04/17 15:58 INR 1.04 (0.5-1.4) 06/04/17 15:58 PTT (Actin FS) 27.7 SECONDS (26.0-38.0) 06/04/17 15:58 Sodium 141 mEq/L (136-145) 06/08/17 06:23 Potassium 3.7 mEq/L (3.5-5.1) 06/08/17 06:23 Chloride 110 mEq/L (98-107) H 06/08/17 06:23 Carbon Dioxide 24.5 mEq/L (21.0-31.0) 06/08/17 06:23 Anion Gap 10.2 (7.0-16.0) 06/08/17 06:23 BUN 7 mg/dL (7-25) 06/08/17 06:23 Creatinine 0.7 mg/dL (0.6-1.2) 06/08/17 06:23 Est GFR ( Amer) TNP 06/08/17 06:23 Est GFR (Non-Af Amer) TNP 06/08/17 06:23 BUN/Creatinine Ratio 10.0 06/08/17 06:23 Glucose 109 mg/dL (70-105) H 06/08/17 06:23 POC Glucose 125 MG/DL (70 - 105) H 06/08/17 05:07 Hemoglobin A1c % 5.8 % (4.0-6.0) 06/05/17 04:29 Whole Bld Lactic Acid 1.55 mmol/L (0.60-1.99) 06/04/17 15:58 Calcium 9.0 mg/dL (8.6-10.3) 06/08/17 06:23 Phosphorus 3.0 mg/dL (2.5-5.0) 06/08/17 06:23 Magnesium 1.8 mg/dL (1.9-2.7) L 06/08/17 06:23 Total Bilirubin 0.5 mg/dL (0.3-1.0) 06/08/17 06:23 AST 14 U/L (13-39) 06/08/17 06:23 ALT 9 U/L (7-52) 06/08/17 06:23 Alkaline Phosphatase 44 U/L (34-104) 06/08/17 06:23 Ammonia 44 umol/L (16-53) 06/05/17 04:29 Creatine Kinase 14 U/L (30-223) L 06/04/17 15:58 Troponin I 0.01 ng/mL (0.01-0.05) 06/04/17 15:58 B-Natriuretic Peptide 149.0 pg/mL (5.0-100.0) H 06/04/17 15:58 Total Protein 6.1 gm/dL (6.0-8.3) 06/08/17 06:23 Albumin 3.3 gm/dL (3.7-5.3) L 06/08/17 06:23 Globulin 2.8 gm/dL 06/08/17 06:23 Albumin/Globulin Ratio 1.2 (1.0-1.8) 06/08/17 06:23 Triglycerides 156 mg/dL (<150) H 06/07/17 05:50 Cholesterol 158 mg/dL (<200) 06/04/17 15:58 LDL Cholesterol Direct 101 mg/dL (75-193) 06/04/17 15:58 HDL Cholesterol 42 mg/dL (23-92) 06/04/17 15:58 Amylase 38 U/L (29-103) 06/04/17 15:58 Lipase 11 U/L (11-82) 06/08/17 06:23 Vitamin B12 568 pg/mL (211-946) 06/05/17 04:29 Folic Acid 5.3 ng/mL (>3.0) 06/05/17 04:29 TSH 4.51 uIU/ml (0.34-5.60) 06/05/17 04:29 - Physical Exam Vitals and I&O: Vital Signs Temp 98 F 06/08/17 08:00 Pulse 64 06/08/17 09:54 Resp 18 06/08/17 08:00 BP 144/60 06/08/17 09:54 Pulse Ox 94 06/08/17 08:00 Intake & Output 06/07/17 06/08/17 06/08/17 18:59 06:59 18:59 Intake Total 1100 450 Balance 1100 450 Weight (lbs) 64.864 kg 64.864 kg Intake: Intake, IV Amount 1100 250 D5-0.45NS 1,000 ml @ 70 1000 mls/hr IV .[id number] [facility] Rx #:[id number] Levofloxacin 250mg/50mL 50 250 mg In 50 ml @ 50 mls/ hr IV Q24HR [facility] Rx#: [id number] metroNIDAZOLE 500mg/NS 100 200 100mL 500 mg In 100 ml @ 100 mls/hr IV Q8HR [facility] Rx #:[id number] Oral 200 Other: # Voids 2 Active Medications: Current Medications Acetaminophen (Tylenol) 650 mg PO Q6HR PRN PRN Reason: Pain (Mild) Stop: 08/03/17 21:50 Last Admin: 06/05/17 06:40 Dose: 650 mg Al Hydrox/Mg Hydrox/Simethicone (Maalox) 30 ml PO Q6H PRN PRN Reason: Dyspepsia Stop: 08/03/17 21:51 Albuterol Sulfate (Albuterol 2.5mg/3ml Neb Ud) 2.5 mg HHN Q2HRT PRN PRN Reason: Shortness of Breath or Wheeze Stop: 08/03/17 21:51 Bisacodyl (Dulcolax 10 Mg Supp) 10 mg RC Q24H PRN PRN Reason: Constipation Stop: 08/03/17 21:50 Cholecalciferol (Vitamin D3) 5,000 iu PO DAILY [facility] Stop: 08/04/17 08:59 Last Admin: 06/08/17 09:52 Dose: 5,000 iu Diphenhydramine HCl (Benadryl 50 Mg/Ml) 25 mg IVP Q8HR PRN PRN Reason: Agitation Stop: 08/06/17 15:48 Docusate Sodium (Colace) 100 mg PO BID [facility] Stop: 08/06/17 16:59 Last Admin: 06/08/17 09:53 Dose: 100 mg Famotidine (Pepcid) 20 mg IVP Q12H [facility] Stop: 08/03/17 21:59 Last Admin: 06/08/17 09:40 Dose: 20 mg Gabapentin (Neurontin) 300 mg PO HS [facility] Stop: 08/04/17 20:59 Last Admin: 06/07/17 21:17 Dose: 300 mg Dextrose/Sodium Chloride (D5-0.45ns) 1,000 mls @ 70 mls/hr IV .[id number] [facility] Stop: 07/08/17 21:59 Last Admin: 06/07/17 22:54 Dose: 70 mls/hr Levofloxacin (Levaquin Pb) 250 mg in 50 mls @ 50 mls/hr IV Q24HR [facility] Stop: 08/04/17 20:59 Last Infusion: 06/07/17 21:31 Dose: Infused Metronidazole (Flagyl) 500 mg in 100 mls @ 100 mls/hr IV Q8HR [facility] Stop: 08/04/17 04:59 Last Admin: 06/08/17 13:18 Dose: 100 mls/hr Lactobacillus Rhamnosus (Culturelle) 1 each PO DAILY [facility] Stop: 08/06/17 08:59 Last Admin: 06/08/17 09:52 Dose: 1 each Levothyroxine Sodium (Synthroid) 0.1 mg PO QDAC [facility] Stop: 08/04/17 07:29 Last Admin: 06/08/17 06:36 Dose: 0.1 mg Losartan Potassium (Cozaar) 50 mg PO DAILY [facility] Stop: 08/04/17 08:59 Last Admin: 06/08/17 09:54 Dose: 50 mg Magnesium Hydroxide (Milk Of Magnesia) 30 ml PO Q24H PRN PRN Reason: IF NO BM IN THREE DAYS Stop: 08/03/17 21:50 Miscellaneous (Probiotic Screen) 1 ea MC PRN PRN PRN Reason: PROTOCOL Stop: 08/05/17 10:59 Morphine Sulfate (Morphine) 2 mg IVP Q4H PRN PRN Reason: Pain (Severe) Stop: 08/03/17 21:51 Last Admin: 06/06/17 15:48 Dose: 2 mg Ondansetron HCl (Zofran) 4 mg IV Q8H PRN PRN Reason: Nausea / Vomiting Stop: 08/03/17 21:53 Quetiapine Fumarate (Seroquel) 100 mg PO HS [facility] PRN Reason: Protocol Stop: 08/07/17 20:59 Quetiapine Fumarate (Seroquel) 25 mg PO BID PRN; Protocol PRN Reason: Agitation Stop: 08/07/17 08:59 General: weak, demented HEENT: NC/AT, PERRLA Neck: Supple Lungs: congested, ronchi Cardiovascular: RRR, Normal S1, Normal S2, with murmur Abdomen: soft, non-tender, non-distended, positive bowel sound Extremities: excoriation, contracture Neurological: no change, unable to follow command Internal Medicine Assmt/Plan - Assessment Assessment: ACUTE DIVERTICULITIS w microperf ACUTE ABDOMINAL PAIN ACUTE UTI SCHIZOAFFECTIVE DISORDER OBESITY HYPERCHOLESTEREMIA HTN - Plan Plan: cont on iv abx gi follow up dw son pscyh follow up ivf cpm see orders Nutritional Asmnt/Malnutr-PDOC - Dietary Evaluation Malnutrition Findings (Please click <Entered> for more info): Nutritional Asmnt/Malnutrition Start: 06/08/17 12: 37 Text: Status: Active Freq: Document 06/08/17 12:37 MMULHERN (Rec: 06/08/17 12:56 MMULHERN NANCY- FN) Nutritional Asmnt/Malnutrition Patient General Information Nutritional Screening Moderate Risk Screening Diagnosis Abdominal pain, intractable vomiting (Reason for visit) sepsis Pertinent Medical Hx/Surgical Hx DIVERTICULOSIS, POLYNEUROPATHY , ARTHRITIS, MUSCLE WEAKNESS, HYPOTHYROIDISM, BIPOLAR, DEPRESSION, PSYCHOTIC, HYPERLIPIDEMIA, HEARING LOSS, DISORDER OF BONE DENSITY, VITAMIN D DEFICENCY, MUSCLE WEAKNESS, GAIT AND MOBILITY ABNORMALITY Subjective Information Per nursing notes, patient deaf; admitted from SNF and found with UTI and diverticulitis per H&P. Patient received PPN x 1 day, now on clear liquid diet. 1:1 sitter at bedside. Current Diet Order/ Nutrition Support Clear liquid Patient / S.O Not Indicated Pertinent Medications maalox, dulcolax, vitamin D, D5-0.45NS @70ml/hr, colace, pepcid, culturelle, synthroid, cozaar, MOM, flagyl, zofran, seroquel Pertinent Labs (06/08) Mg 1.8 (decreasing), albumin 3.3 (decreased) Nutritional Hx/Data Height 1.57 m Height (Calculated Centimeters) 157.5 Current Weight (lbs) 64.864 kg Weight (Calculated Kilograms) 64.9 Weight (Calculated Grams) 33957.7 [place] Body Weight 110 % [place] Body Weight 130 Weight Status Overweight GI Symptoms Food Allergies No Cultural/Ethnic/Hindu Belief None indicated Skin Integrity/Comment: [place] 14, intact Current %PO Negligible < 25% Nutritional Problem 1. Problem Problem Inadequate oral intake related to Etiology possible poor appetite/ abdominal pain, lack of diet advancement aeb Signs/Symptoms: Meeting <25% of estimated calorie needs from oral diet. Intervention/Recommendation Comments 1. Continue clear liquid diet as tolerated by patient; advance diet as tolerated to goal of regular diet (texture to be determined by speech therapist if swallowing difficulty). Expected Outcomes/Goals Expected Outcomes/Goals oral intake to meet >75% of estimated nutrient needs, weight stable, nutrition related labs normalize.
[2017-06-08] MEDS: Amino Acids 3% / Electrolytes 1,000 ML IV SCH (16:30)
[2017-06-08 18:57] LABS: URINE BILIRUBIN NEGATIVE (NEGATIVE); URINE BLOOD NEGATIVE (NEGATIVE); URINE GLUCOSE (UA) NEGATIVE (NEGATIVE); URINE KETONE NEGATIVE (NEGATIVE); URINE PROTEIN 30 mg/dL (NEGATIVE); URINE UROBILINOGEN 0.2 E.U./dL (0.2 - 1.0)
[2017-06-08 19:01] LABS: URINE COLOR BROWN; URINE RBC 0-2 /hpf (0-5)
[2017-06-08 19:02] LABS: URINE BACTERIA FEW /hpf (NONE SEEN); URINE EPITHELIAL CELLS OCCASIONAL /lpf (FEW)
--- NOTE | 2017-06-08 20:57 | Consultation ---
DATE OF CONSULTATION: 06/08/2017 HISTORY OF PRESENT ILLNESS: An 86-year-old female with history of bipolar, hypertension, GERD, osteoarthritis, hypercholesterolemia, admitted due to abdominal pain. On [id number], the patient is sleeping. I did try to arouse her, but she is quite sedated. Staff noting she has been restless, pulling out IVs, confused. PAST PSYCHIATRIC HISTORY: Bipolar, per documentation. FAMILY HISTORY: Unknown. SOCIAL HISTORY: Her address is in [place]. Her son does come to visit, per staff. Dr. Lang has been following this patient. I did review his notes. MEDICATIONS: Also noted. MENTAL STATUS EXAMINATION: Stated age, little eye contact, sleeping, hard to arouse, sedated. Staff noting she has been pretty restless on exam, unable to evaluate thought processes or thought content. Poor impulse control. PROVISIONAL DIAGNOSIS: Bipolar per history. MEDICAL: Please see full H and P. RECOMMENDATIONS AND PLAN: The patient currently on Seroquel 75 mg daily. The patient will likely tolerate dose increase. She is currently on Abilify 1 mg at bedtime. I will stop the Abilify at bedtime and increase nighttime dosing of Seroquel and adjust Seroquel dosing throughout the daytime as well. The patient may also benefit from p.r.n. dosing and increase of Ativan. We will monitor and follow up. If behaviors are ongoing she may need Geropsych placement. [facility]# [id number]
[2017-06-08] MEDS: Levofloxacin 250mg/50mL 250 MG/50 ML BAG IV SCH (22:12)
[2017-06-09 06:55] LABS: ALB/GLOB RATIO 1.2 (1.0-1.8); ALKALINE PHOSPHATASE 41 U/L (34-104); ANION GAP 8.9 (7.0-16.0); BILIRUBIN,TOTAL 0.4 mg/dL (0.3-1.0); BUN - UREA NITROGEN 10 mg/dL (7-25); BUN/CREATININE RATIO 16.7; CHLORIDE 109 mEq/L (98-107); CREATININE - SERUM 0.6 mg/dL (0.6-1.2); GLUCOSE 119 mg/dL (70-105); MAGNESIUM 1.9 mg/dL (1.9-2.7); POTASSIUM SERUM 3.9 mEq/L (3.5-5.1); SGOT 15 U/L (13-39); SGPT/ALT 9 U/L (7-52); SODIUM SERUM 138 mEq/L (136-145)
[2017-06-09] MEDS: Levothyroxine 0.1 Mg Tab PO SCH (08:52)
[2017-06-09] MEDS: Amino Acids 3% / Electrolytes 1,000 ML IV SCH (09:06)
[2017-06-09] MEDS: Lactobacillus Rhamnosus 10 Billion CFU Capsule PO SCH (09:09)
--- NOTE | 2017-06-09 10:03 | GI Progress Note ---
Subjective - Review of Systems Subjective: Intermittently eats, but not much. Constipated. Had urinary retention Objective - Results Result Diagrams: 06/08/17 06:23 06/09/17 06:14 Recent Labs: Laboratory Last Values WBC 7.9 Th/cmm (4.8-10.8) 06/08/17 06:23 RBC 4.66 Mil/cmm (3.80-5.20) 06/08/17 06:23 Hgb 13.5 gm/dL (12-16) 06/08/17 06:23 Hct 40.1 % (41.0-60) L 06/08/17 06:23 MCV 86.0 fl (81-100) 06/08/17 06:23 MCH 28.9 pg (27.0-31.0) 06/08/17 06:23 MCHC Differential 33.6 pg (28.0-36.0) 06/08/17 06:23 RDW 13.6 % (11.5-20.0) 06/08/17 06:23 Plt Count 240 Th/cmm (150-400) 06/08/17 06:23 MPV 8.2 fl 06/08/17 06:23 Neutrophils % 61.9 % (40.0-80.0) 06/08/17 06:23 Lymphocytes % 21.1 % (20.0-50.0) 06/08/17 06:23 Monocytes % 11.6 % (2.0-10.0) H 06/08/17 06:23 Eosinophils % 4.6 % (0.0-5.0) 06/08/17 06:23 Basophils % 0.8 % (0.0-2.0) 06/08/17 06:23 PT 10.8 SECONDS (9.5-11.5) 06/04/17 15:58 INR 1.04 (0.5-1.4) 06/04/17 15:58 PTT (Actin FS) 27.7 SECONDS (26.0-38.0) 06/04/17 15:58 Sodium 138 mEq/L (136-145) 06/09/17 06:14 Potassium 3.9 mEq/L (3.5-5.1) 06/09/17 06:14 Chloride 109 mEq/L (98-107) H 06/09/17 06:14 Carbon Dioxide 24.0 mEq/L (21.0-31.0) 06/09/17 06:14 Anion Gap 8.9 (7.0-16.0) 06/09/17 06:14 BUN 10 mg/dL (7-25) 06/09/17 06:14 Creatinine 0.6 mg/dL (0.6-1.2) 06/09/17 06:14 Est GFR ( Amer) TNP 06/09/17 06:14 Est GFR (Non-Af Amer) TNP 06/09/17 06:14 BUN/Creatinine Ratio 16.7 06/09/17 06:14 Glucose 119 mg/dL (70-105) H 06/09/17 06:14 POC Glucose 125 MG/DL (70 - 105) H 06/08/17 05:07 Hemoglobin A1c % 5.8 % (4.0-6.0) 06/05/17 04:29 Whole Bld Lactic Acid 1.55 mmol/L (0.60-1.99) 06/04/17 15:58 Calcium 9.0 mg/dL (8.6-10.3) 06/09/17 06:14 Phosphorus 2.5 mg/dL (2.5-5.0) 06/09/17 06:14 Magnesium 1.9 mg/dL (1.9-2.7) 06/09/17 06:14 Total Bilirubin 0.4 mg/dL (0.3-1.0) 06/09/17 06:14 AST 15 U/L (13-39) 06/09/17 06:14 ALT 9 U/L (7-52) 06/09/17 06:14 Alkaline Phosphatase 41 U/L (34-104) 06/09/17 06:14 Ammonia 44 umol/L (16-53) 06/05/17 04:29 Creatine Kinase 14 U/L (30-223) L 06/04/17 15:58 Troponin I 0.01 ng/mL (0.01-0.05) 06/04/17 15:58 B-Natriuretic Peptide 149.0 pg/mL (5.0-100.0) H 06/04/17 15:58 Total Protein 5.9 gm/dL (6.0-8.3) L 06/09/17 06:14 Albumin 3.2 gm/dL (3.7-5.3) L 06/09/17 06:14 Globulin 2.7 gm/dL 06/09/17 06:14 Albumin/Globulin Ratio 1.2 (1.0-1.8) 06/09/17 06:14 Triglycerides 156 mg/dL (<150) H 06/07/17 05:50 Cholesterol 158 mg/dL (<200) 06/04/17 15:58 LDL Cholesterol Direct 101 mg/dL (75-193) 06/04/17 15:58 HDL Cholesterol 42 mg/dL (23-92) 06/04/17 15:58 Amylase 38 U/L (29-103) 06/04/17 15:58 Lipase 11 U/L (11-82) 06/08/17 06:23 Vitamin B12 568 pg/mL (211-946) 06/05/17 04:29 Folic Acid 5.3 ng/mL (>3.0) 06/05/17 04:29 TSH 4.51 uIU/ml (0.34-5.60) 06/05/17 04:29 Urine Source CATH 06/08/17 18:55 Urine Color BROWN 06/08/17 18:55 Urine Clarity HAZY (CLEAR) 06/08/17 18:55 Urine pH 6.0 (4.6 - 8.0) 06/08/17 18:55 Ur Specific [place] 1.025 (1.005-1.030) 06/08/17 18:55 Urine Protein 30 mg/dL (NEGATIVE) H 06/08/17 18:55 Urine Glucose (UA) NEGATIVE mg/dL (NEGATIVE) 06/08/17 18:55 Urine Ketones NEGATIVE mg/dL (NEGATIVE) 06/08/17 18:55 Urine Blood NEGATIVE (NEGATIVE) 06/08/17 18:55 Urine Nitrate POSITIVE (NEGATIVE) H 06/08/17 18:55 Urine Bilirubin NEGATIVE (NEGATIVE) 06/08/17 18:55 Urine Urobilinogen 0.2 E.U./dL (0.2 - 1.0) 06/08/17 18:55 Ur Leukocyte Esterase TRACE (NEGATIVE) H 06/08/17 18:55 Urine RBC 0-2 /hpf (0-5) 06/08/17 18:55 Urine WBC 2-5 /hpf (0-5) 06/08/17 18:55 Ur Epithelial Cells OCCASIONAL /lpf (FEW) 06/08/17 18:55 Urine Bacteria FEW /hpf (NONE SEEN) 06/08/17 18:55 Urine Mucus FEW /lpf (FEW) 06/08/17 18:55 - Physical Exam Vitals and I&O: Vital Signs Temp 97.9 F 06/09/17 04:00 Pulse 72 06/09/17 08:52 Resp 16 06/09/17 07:33 BP 117/81 06/09/17 08:52 Pulse Ox 94 06/09/17 07:33 Intake & Output 06/08/17 06/09/17 06/09/17 18:59 06:59 18:59 Intake Total 150 2110 Output Total 500 Balance 150 1610 Weight (lbs) 64.864 kg 64.864 kg Intake: Intake, IV Amount 100 2040 Amino Acids 3% / 1000 Electrolytes 1,000 ml @ 70 mls/hr IV .[id number] [facility] Rx#:[id number] D5-0.45NS 1,000 ml @ 70 1000 mls/hr IV .[id number] [facility] Rx #:[id number] Levofloxacin 250mg/50mL 40 250 mg In 50 ml @ 50 mls/ hr IV Q24HR [facility] Rx#: [id number] metroNIDAZOLE 500mg/NS 100 100mL 500 mg In 100 ml @ 100 mls/hr IV Q8HR [facility] Rx #:[id number] Oral 50 Albumin 70 Output: Urine 500 Other: # Voids 0 1 Active Medications: Current Medications Acetaminophen (Tylenol) 650 mg PO Q6HR PRN PRN Reason: Pain (Mild) Stop: 08/03/17 21:50 Last Admin: 06/05/17 06:40 Dose: 650 mg Al Hydrox/Mg Hydrox/Simethicone (Maalox) 30 ml PO Q6H PRN PRN Reason: Dyspepsia Stop: 08/03/17 21:51 Albuterol Sulfate (Albuterol 2.5mg/3ml Neb Ud) 2.5 mg HHN Q2HRT PRN PRN Reason: Shortness of Breath or Wheeze Stop: 08/03/17 21:51 Bisacodyl (Dulcolax 10 Mg Supp) 10 mg RC Q24H PRN PRN Reason: Constipation Stop: 08/03/17 21:50 Cholecalciferol (Vitamin D3) 5,000 iu PO DAILY [facility] Stop: 08/04/17 08:59 Last Admin: 06/09/17 08:51 Dose: 5,000 iu Diphenhydramine HCl (Benadryl 50 Mg/Ml) 25 mg IVP Q8HR PRN PRN Reason: Agitation Stop: 08/06/17 15:48 Docusate Sodium (Colace) 100 mg PO BID [facility] Stop: 08/06/17 16:59 Last Admin: 06/09/17 08:52 Dose: 100 mg Famotidine (Pepcid) 20 mg IVP Q12H [facility] Stop: 08/03/17 21:59 Last Admin: 06/09/17 09:17 Dose: 20 mg Gabapentin (Neurontin) 300 mg PO HS [facility] Stop: 08/04/17 20:59 Last Admin: 06/08/17 22:15 Dose: 300 mg Dextrose/Sodium Chloride (D5-0.45ns) 1,000 mls @ 70 mls/hr IV .[id number] [facility] Stop: 07/08/17 21:59 Last Infusion: 06/09/17 06:09 Dose: Infused Levofloxacin (Levaquin Pb) 250 mg in 50 mls @ 50 mls/hr IV Q24HR [facility] Stop: 08/04/17 20:59 Last Infusion: 06/08/17 23:00 Dose: 0 mls/hr Metronidazole (Flagyl) 500 mg in 100 mls @ 100 mls/hr IV Q8HR [facility] Stop: 08/04/17 04:59 Last Admin: 06/08/17 22:11 Dose: 100 mls/hr Amino Acids/Electrolytes (Procalamine) 1,000 mls @ 70 mls/hr IV .[id number] [facility] Stop: 06/09/17 15:59 Last Admin: 06/09/17 09:06 Dose: 70 mls/hr Multivitamins/Minerals 10 ml/Dextrose/ Amino Acids/Electrolytes/ Fat Emulsion Intravenous 1,680 mls @ 70 mls/hr IV .Q24H [facility] Stop: 08/08/17 15:59 Lactobacillus Rhamnosus (Culturelle) 1 each PO DAILY [facility] Stop: 08/06/17 08:59 Last Admin: 06/09/17 09:09 Dose: 1 each Levothyroxine Sodium (Synthroid) 0.1 mg PO QDAC [facility] Stop: 08/04/17 07:29 Last Admin: 06/09/17 08:52 Dose: 0.1 mg Losartan Potassium (Cozaar) 50 mg PO DAILY [facility] Stop: 08/04/17 08:59 Last Admin: 06/09/17 08:52 Dose: 50 mg Magnesium Hydroxide (Milk Of Magnesia) 30 ml PO Q24H PRN PRN Reason: IF NO BM IN THREE DAYS Stop: 08/03/17 21:50 Miscellaneous (Probiotic Screen) 1 ea PRN PRN PRN Reason: PROTOCOL Stop: 08/05/17 10:59 Miscellaneous (Ppn Per Pharmacy) 1 ea PRN PRN PRN Reason: PROTOCOL Stop: 08/07/17 13:24 Morphine Sulfate (Morphine) 2 mg IVP Q4H PRN PRN Reason: Pain (Severe) Stop: 08/03/17 21:51 Last Admin: 06/06/17 15:48 Dose: 2 mg Ondansetron HCl (Zofran) 4 mg IV Q8H PRN PRN Reason: Nausea / Vomiting Stop: 08/03/17 21:53 Quetiapine Fumarate (Seroquel) 100 mg PO HS [facility] PRN Reason: Protocol Stop: 08/07/17 20:59 Quetiapine Fumarate (Seroquel) 25 mg PO BID PRN; Protocol PRN Reason: Agitation Stop: 08/07/17 08:59 General: Alert, No acute distress Abdomen: Bowel sounds, Soft, Other (no rebound or guarding) Assessment/Plan - Problem List Patient Problems: All Active Problems GENERALIZED ABDOMINAL PAIN WITH DISTENTI (Acute) - Assessment Assessment: # Diverticulitis with microperforation # urinary retention Tolerating clears, although does not each much. Will try and advance today to full liquids in the hope that she eats more robustly. Urinary retention may also be exacerbating her constipation and anorexia, thus - advance to full liquid today - May need intermittent straight cath for urinary retention - If she worsens, would need surgery consultation for complicated diverticulitis - cont abx, will need full 7 day course - colace 100mg tid. No enemas given she has diverticulitis with contained perforation
--- NOTE | 2017-06-09 10:36 | Progress Notes ---
DATE: 06/09/2017 HISTORY OF PRESENT ILLNESS: The patient noted to be an 86-year-old female. She is noted by staff to be quite a bit calmer. She seems to be less agitated, less impulsive and unpredictable. I did call son yesterday and I did leave a voice message. The patient is currently on Seroquel 75 mg daily, 100 mg at bedtime, and I added a small p.r.n. dose. This seems to be a reasonable dose at this time. I also discontinued the Abilify. She was on 1 mg at bedtime. Medications were noted. No side effects at this time. The patient is not over sedated. She is just calmer. MENTAL STATUS EXAMINATION: Stated age. Fair eye contact. Speech: Not talking. Affect flat. Thought processes were confused. Psychomotorically calmer. No SI, no HI, no overt psychotic symptoms. PROVISIONAL DIAGNOSIS: Bipolar, per history. RECOMMENDATIONS AND PLAN: We will monitor and follow up. Continue medications at current dose. Currently pending a call back from the son. JOB# [id number]
--- NOTE | 2017-06-09 11:43 | Internal Medicine Prog Note ---
Internal Medicine Subjective - Subjective Patient seen and examined:: with staff, chart reviewed Patient is:: awake, verbal, interactive, agitated, confused Patient Complaints of:: unable to sleep Per staff patient has:: no adverse event, poor appetite, poor oral intake, agitated, refusing care, refusing labs Internal Medicine Objective - Results Result Diagrams: 06/08/17 06:23 06/09/17 06:14 Recent Labs: Laboratory Last Values WBC 7.9 Th/cmm (4.8-10.8) 06/08/17 06:23 RBC 4.66 Mil/cmm (3.80-5.20) 06/08/17 06:23 Hgb 13.5 gm/dL (12-16) 06/08/17 06:23 Hct 40.1 % (41.0-60) L 06/08/17 06:23 MCV 86.0 fl (81-100) 06/08/17 06:23 MCH 28.9 pg (27.0-31.0) 06/08/17 06:23 MCHC Differential 33.6 pg (28.0-36.0) 06/08/17 06:23 RDW 13.6 % (11.5-20.0) 06/08/17 06:23 Plt Count 240 Th/cmm (150-400) 06/08/17 06:23 MPV 8.2 fl 06/08/17 06:23 Neutrophils % 61.9 % (40.0-80.0) 06/08/17 06:23 Lymphocytes % 21.1 % (20.0-50.0) 06/08/17 06:23 Monocytes % 11.6 % (2.0-10.0) H 06/08/17 06:23 Eosinophils % 4.6 % (0.0-5.0) 06/08/17 06:23 Basophils % 0.8 % (0.0-2.0) 06/08/17 06:23 PT 10.8 SECONDS (9.5-11.5) 06/04/17 15:58 INR 1.04 (0.5-1.4) 06/04/17 15:58 PTT (Actin FS) 27.7 SECONDS (26.0-38.0) 06/04/17 15:58 Sodium 138 mEq/L (136-145) 06/09/17 06:14 Potassium 3.9 mEq/L (3.5-5.1) 06/09/17 06:14 Chloride 109 mEq/L (98-107) H 06/09/17 06:14 Carbon Dioxide 24.0 mEq/L (21.0-31.0) 06/09/17 06:14 Anion Gap 8.9 (7.0-16.0) 06/09/17 06:14 BUN 10 mg/dL (7-25) 06/09/17 06:14 Creatinine 0.6 mg/dL (0.6-1.2) 06/09/17 06:14 Est GFR ( Amer) TNP 06/09/17 06:14 Est GFR (Non-Af Amer) TNP 06/09/17 06:14 BUN/Creatinine Ratio 16.7 06/09/17 06:14 Glucose 119 mg/dL (70-105) H 06/09/17 06:14 POC Glucose 125 MG/DL (70 - 105) H 06/08/17 05:07 Hemoglobin A1c % 5.8 % (4.0-6.0) 06/05/17 04:29 Whole Bld Lactic Acid 1.55 mmol/L (0.60-1.99) 06/04/17 15:58 Calcium 9.0 mg/dL (8.6-10.3) 06/09/17 06:14 Phosphorus 2.5 mg/dL (2.5-5.0) 06/09/17 06:14 Magnesium 1.9 mg/dL (1.9-2.7) 06/09/17 06:14 Total Bilirubin 0.4 mg/dL (0.3-1.0) 06/09/17 06:14 AST 15 U/L (13-39) 06/09/17 06:14 ALT 9 U/L (7-52) 06/09/17 06:14 Alkaline Phosphatase 41 U/L (34-104) 06/09/17 06:14 Ammonia 44 umol/L (16-53) 06/05/17 04:29 Creatine Kinase 14 U/L (30-223) L 06/04/17 15:58 Troponin I 0.01 ng/mL (0.01-0.05) 06/04/17 15:58 B-Natriuretic Peptide 149.0 pg/mL (5.0-100.0) H 06/04/17 15:58 Total Protein 5.9 gm/dL (6.0-8.3) L 06/09/17 06:14 Albumin 3.2 gm/dL (3.7-5.3) L 06/09/17 06:14 Globulin 2.7 gm/dL 06/09/17 06:14 Albumin/Globulin Ratio 1.2 (1.0-1.8) 06/09/17 06:14 Triglycerides 156 mg/dL (<150) H 06/07/17 05:50 Cholesterol 158 mg/dL (<200) 06/04/17 15:58 LDL Cholesterol Direct 101 mg/dL (75-193) 06/04/17 15:58 HDL Cholesterol 42 mg/dL (23-92) 06/04/17 15:58 Amylase 38 U/L (29-103) 06/04/17 15:58 Lipase 11 U/L (11-82) 06/08/17 06:23 Vitamin B12 568 pg/mL (211-946) 06/05/17 04:29 Folic Acid 5.3 ng/mL (>3.0) 06/05/17 04:29 TSH 4.51 uIU/ml (0.34-5.60) 06/05/17 04:29 Urine Source CATH 06/08/17 18:55 Urine Color BROWN 06/08/17 18:55 Urine Clarity HAZY (CLEAR) 06/08/17 18:55 Urine pH 6.0 (4.6 - 8.0) 06/08/17 18:55 Ur Specific [place] 1.025 (1.005-1.030) 06/08/17 18:55 Urine Protein 30 mg/dL (NEGATIVE) H 06/08/17 18:55 Urine Glucose (UA) NEGATIVE mg/dL (NEGATIVE) 06/08/17 18:55 Urine Ketones NEGATIVE mg/dL (NEGATIVE) 06/08/17 18:55 Urine Blood NEGATIVE (NEGATIVE) 06/08/17 18:55 Urine Nitrate POSITIVE (NEGATIVE) H 06/08/17 18:55 Urine Bilirubin NEGATIVE (NEGATIVE) 06/08/17 18:55 Urine Urobilinogen 0.2 E.U./dL (0.2 - 1.0) 06/08/17 18:55 Ur Leukocyte Esterase TRACE (NEGATIVE) H 06/08/17 18:55 Urine RBC 0-2 /hpf (0-5) 06/08/17 18:55 Urine WBC 2-5 /hpf (0-5) 06/08/17 18:55 Ur Epithelial Cells OCCASIONAL /lpf (FEW) 06/08/17 18:55 Urine Bacteria FEW /hpf (NONE SEEN) 06/08/17 18:55 Urine Mucus FEW /lpf (FEW) 06/08/17 18:55 - Physical Exam Vitals and I&O: Vital Signs Temp 97.9 F 06/09/17 04:00 Pulse 72 06/09/17 08:52 Resp 16 06/09/17 07:33 BP 117/81 06/09/17 08:52 Pulse Ox 94 06/09/17 07:33 Intake & Output 06/08/17 06/09/17 06/09/17 18:59 06:59 18:59 Intake Total 150 2110 Output Total 500 Balance 150 1610 Weight (lbs) 64.864 kg 64.864 kg Intake: Intake, IV Amount 100 2040 Amino Acids 3% / 1000 Electrolytes 1,000 ml @ 70 mls/hr IV .[id number] [facility] Rx#:[id number] D5-0.45NS 1,000 ml @ 70 1000 mls/hr IV .[id number] [facility] Rx #:[id number] Levofloxacin 250mg/50mL 40 250 mg In 50 ml @ 50 mls/ hr IV Q24HR [facility] Rx#: [id number] metroNIDAZOLE 500mg/NS 100 100mL 500 mg In 100 ml @ 100 mls/hr IV Q8HR [facility] Rx #:[id number] Oral 50 Albumin 70 Output: Urine 500 Other: # Voids 0 1 Active Medications: Current Medications Acetaminophen (Tylenol) 650 mg PO Q6HR PRN PRN Reason: Pain (Mild) Stop: 08/03/17 21:50 Last Admin: 06/05/17 06:40 Dose: 650 mg Al Hydrox/Mg Hydrox/Simethicone (Maalox) 30 ml PO Q6H PRN PRN Reason: Dyspepsia Stop: 08/03/17 21:51 Albuterol Sulfate (Albuterol 2.5mg/3ml Neb Ud) 2.5 mg HHN Q2HRT PRN PRN Reason: Shortness of Breath or Wheeze Stop: 08/03/17 21:51 Bisacodyl (Dulcolax 10 Mg Supp) 10 mg RC Q24H PRN PRN Reason: Constipation Stop: 08/03/17 21:50 Cholecalciferol (Vitamin D3) 5,000 iu PO DAILY [facility] Stop: 08/04/17 08:59 Last Admin: 06/09/17 08:51 Dose: 5,000 iu Diphenhydramine HCl (Benadryl 50 Mg/Ml) 25 mg IVP Q8HR PRN PRN Reason: Agitation Stop: 08/06/17 15:48 Docusate Sodium (Colace) 100 mg PO TID [facility] Stop: 08/08/17 13:59 Famotidine (Pepcid) 20 mg IVP Q12H [facility] Stop: 08/03/17 21:59 Last Admin: 06/09/17 09:17 Dose: 20 mg Gabapentin (Neurontin) 300 mg PO HS [facility] Stop: 08/04/17 20:59 Last Admin: 06/08/17 22:15 Dose: 300 mg Dextrose/Sodium Chloride (D5-0.45ns) 1,000 mls @ 70 mls/hr IV .[id number] [facility] Stop: 07/08/17 21:59 Last Infusion: 06/09/17 06:09 Dose: Infused Levofloxacin (Levaquin Pb) 250 mg in 50 mls @ 50 mls/hr IV Q24HR [facility] Stop: 08/04/17 20:59 Last Infusion: 06/08/17 23:00 Dose: 0 mls/hr Metronidazole (Flagyl) 500 mg in 100 mls @ 100 mls/hr IV Q8HR [facility] Stop: 08/04/17 04:59 Last Admin: 06/08/17 22:11 Dose: 100 mls/hr Amino Acids/Electrolytes (Procalamine) 1,000 mls @ 70 mls/hr IV .[id number] [facility] Stop: 06/09/17 15:59 Last Admin: 06/09/17 09:06 Dose: 70 mls/hr Multivitamins/Minerals 10 ml/Dextrose/ Amino Acids/Electrolytes/ Fat Emulsion Intravenous 1,680 mls @ 70 mls/hr IV .Q24H [facility] Stop: 08/08/17 15:59 Lactobacillus Rhamnosus (Culturelle) 1 each PO DAILY [facility] Stop: 08/06/17 08:59 Last Admin: 06/09/17 09:09 Dose: 1 each Levothyroxine Sodium (Synthroid) 0.1 mg PO QDAC [facility] Stop: 08/04/17 07:29 Last Admin: 06/09/17 08:52 Dose: 0.1 mg Losartan Potassium (Cozaar) 50 mg PO DAILY [facility] Stop: 08/04/17 08:59 Last Admin: 06/09/17 08:52 Dose: 50 mg Magnesium Hydroxide (Milk Of Magnesia) 30 ml PO Q24H PRN PRN Reason: IF NO BM IN THREE DAYS Stop: 08/03/17 21:50 Miscellaneous (Probiotic Screen) 1 ea PRN PRN PRN Reason: PROTOCOL Stop: 08/05/17 10:59 Miscellaneous (Ppn Per Pharmacy) 1 ea PRN PRN PRN Reason: PROTOCOL Stop: 08/07/17 13:24 Morphine Sulfate (Morphine) 2 mg IVP Q4H PRN PRN Reason: Pain (Severe) Stop: 08/03/17 21:51 Last Admin: 06/06/17 15:48 Dose: 2 mg Ondansetron HCl (Zofran) 4 mg IV Q8H PRN PRN Reason: Nausea / Vomiting Stop: 08/03/17 21:53 Quetiapine Fumarate (Seroquel) 100 mg PO HS [facility] PRN Reason: Protocol Stop: 08/07/17 20:59 Quetiapine Fumarate (Seroquel) 25 mg PO BID PRN; Protocol PRN Reason: Agitation Stop: 08/07/17 08:59 General: weak, demented HEENT: NC/AT, PERRLA Neck: Supple Lungs: congested, ronchi Cardiovascular: RRR, Normal S1, Normal S2, with murmur Abdomen: soft, non-tender, non-distended, positive bowel sound Extremities: excoriation, contracture Neurological: no change, unable to follow command Internal Medicine Assmt/Plan - Assessment Assessment: ACUTE DIVERTICULITIS w microperf ACUTE ABDOMINAL PAIN ACUTE UTI SCHIZOAFFECTIVE DISORDER OBESITY HYPERCHOLESTEREMIA HTN - Plan Plan: cont on iv abx gi follow up dw son pscyh follow up ivf cpm see orders Nutritional Asmnt/Malnutr-PDOC - Dietary Evaluation Malnutrition Findings (Please click <Entered> for more info): Nutritional Asmnt/Malnutrition Start: 06/08/17 12: 37 Text: Status: Complete Freq: Document 06/08/17 12:37 ELVIN (Rec: 06/08/17 12:56 [email or web address] NANCY- FNS1) Nutritional Asmnt/Malnutrition Patient General Information Nutritional Screening Moderate Risk Screening Diagnosis Abdominal pain, intractable vomiting (Reason for visit) sepsis Pertinent Medical Hx/Surgical Hx DIVERTICULOSIS, POLYNEUROPATHY , ARTHRITIS, MUSCLE WEAKNESS, HYPOTHYROIDISM, BIPOLAR, DEPRESSION, PSYCHOTIC, HYPERLIPIDEMIA, HEARING LOSS, DISORDER OF BONE DENSITY, VITAMIN D DEFICENCY, MUSCLE WEAKNESS, GAIT AND MOBILITY ABNORMALITY Subjective Information Per nursing notes, patient deaf; admitted from SNF and found with UTI and diverticulitis per H&P. Patient received PPN x 1 day, now on clear liquid diet. 1:1 sitter at bedside. Per nursing notes, patient refused to eat breakfast; procalamine ordered today and PPN to start tomorrow. No vomiting noted. Current Diet Order/ Nutrition Support Clear liquid Patient / S.O Not Indicated Pertinent Medications maalox, dulcolax, vitamin D, D5-0.45NS @70ml/hr, colace, pepcid, culturelle, synthroid, cozaar, MOM, flagyl, zofran, seroquel Pertinent Labs (06/08) Mg 1.8 (decreasing), albumin 3.3 (decreased) Nutritional Hx/Data Height 1.57 m Height (Calculated Centimeters) 157.5 Current Weight (lbs) 64.864 kg Weight (Calculated Kilograms) 64.9 Weight (Calculated Grams) 93802.7 [place] Body Weight 110 % [place] Body Weight 130 Weight Status Overweight GI Symptoms Food Allergies No Cultural/Ethnic/Moravian Belief None indicated Skin Integrity/Comment: [place] 14, intact Current %PO Negligible < 25% Estimated Nutritional Goals BEE in Kcals: Using Current wt Calories/Kcals/Kg (25-30 kcal/kg) 65kg Kcals Calculated 0604-2327 kcal/day Protein: Using Current wt Protein g/kg: (1 gm/kg) Protein Calculated 65 gm/day Fluid: ml 0661-7486 ml/day (1 ml/kcal) Nutritional Problem 1. Problem Problem Inadequate oral intake related to Etiology possible poor appetite/ abdominal pain, lack of diet advancement aeb Signs/Symptoms: Meeting <25% of estimated calorie needs from oral diet. Intervention/Recommendation Comments 1. Continue clear liquid diet as tolerated by patient; advance diet as tolerated to goal of regular diet (texture to be determined by speech therapist if swallowing difficulty). 2. Consider appetite stimulant to increase oral intake. Nursing to provide full assistance with meals and encourage oral intake. PPN not indicated at this time. Expected Outcomes/Goals Expected Outcomes/Goals oral intake to meet >75% of estimated nutrient needs, weight stable, nutrition related labs normalize.
[2017-06-09] MEDS: metroNIDAZOLE 500mg/NS 100mL 500 MG/100 ML BAG IV SCH (13:40)
[2017-06-09] MEDS ORDERED: AMINO ACIDS 10% IV SCH (16:00)
[2017-06-09] MEDS ORDERED: DEXTROSE IV SCH (16:00)
[2017-06-09] MEDS ORDERED: [UNRECOGNIZED DRUG - OTHER] IV SCH (16:00)
[2017-06-09] MEDS ORDERED: MULTIVITAMIN IV SCH (16:00)
[2017-06-09] MEDS: Levofloxacin 250mg/50mL 250 MG/50 ML BAG IV SCH (21:51)
[2017-06-10] MEDS: metroNIDAZOLE 500mg/NS 100mL 500 MG/100 ML BAG IV SCH ×3 (05:42→22:03)
[2017-06-10 06:10] LABS: % BASOPHILS 0.5 % (0.0-2.0); % EOSINOPHILS 4.3 % (0.0-5.0); % LYMPHOCYTES 21.6 % (20.0-50.0); % MONOCYTES 9.8 % (2.0-10.0); % NEUTROPHILS 63.8 % (40.0-80.0); HEMATOCRIT 37.7 % (41.0-60); HEMOGLOBIN 12.8 gm/dL (12-16); MEAN CELL VOLUME 86.1 fl (81-100); MEAN CORPUSCULAR HEMOGLOBIN 29.1 pg (27.0-31.0); MEAN CORPUSCULAR HGB CONC 33.8 pg (28.0-36.0); MEAN PLATELET VOLUME 8.1 fl; NEUTROPHILE ABSOLUTE 5.5 Th/cmm (1.8-8.0); PLATELET COUNT 252 Th/cmm (150-400); RED BLOOD COUNT 4.38 Mil/cmm (3.80-5.20); RED CELL DISTRIBUTION WIDTH 13.7 % (11.5-20.0); WHITE BLOOD COUNT 8.5 Th/cmm (4.8-10.8)
[2017-06-10 06:19] LABS: ALB/GLOB RATIO 1.3 (1.0-1.8); ALKALINE PHOSPHATASE 39 U/L (34-104); ANION GAP 7.4 (7.0-16.0); BILIRUBIN,TOTAL 0.3 mg/dL (0.3-1.0); BUN - UREA NITROGEN 10 mg/dL (7-25); BUN/CREATININE RATIO 16.7; CALCIUM SERUM 8.9 mg/dL (8.6-10.3); CARBON DIOXIDE 24.1 mEq/L (21.0-31.0); CHLORIDE 108 mEq/L (98-107); CREATININE - SERUM 0.6 mg/dL (0.6-1.2); GLUCOSE 134 mg/dL (70-105); PHOSPHOROUS 3.4 mg/dL (2.5-5.0); POTASSIUM SERUM 3.5 mEq/L (3.5-5.1); SGOT 11 U/L (13-39); SGPT/ALT 8 U/L (7-52); SODIUM SERUM 136 mEq/L (136-145)
[2017-06-10] MEDS: Levothyroxine 0.1 Mg Tab PO SCH (07:05)
[2017-06-10] MEDS: Lactobacillus Rhamnosus 10 Billion CFU Capsule PO SCH (09:46)
[2017-06-10] MEDS ORDERED: D5-0.45NS 1,000 ML IV SCH (10:00)
--- NOTE | 2017-06-10 13:06 | Internal Medicine Prog Note ---
Internal Medicine Subjective - Subjective Patient seen and examined:: with staff, chart reviewed Patient is:: awake, verbal, interactive, agitated, confused Patient Complaints of:: unable to sleep Per staff patient has:: no adverse event, poor appetite, poor oral intake, agitated, refusing care, refusing labs Internal Medicine Objective - Results Result Diagrams: 06/10/17 05:30 06/10/17 05:30 Recent Labs: Laboratory Last Values WBC 8.5 Th/cmm (4.8-10.8) 06/10/17 05:30 RBC 4.38 Mil/cmm (3.80-5.20) 06/10/17 05:30 Hgb 12.8 gm/dL (12-16) 06/10/17 05:30 Hct 37.7 % (41.0-60) L 06/10/17 05:30 MCV 86.1 fl (81-100) 06/10/17 05:30 MCH 29.1 pg (27.0-31.0) 06/10/17 05:30 MCHC Differential 33.8 pg (28.0-36.0) 06/10/17 05:30 RDW 13.7 % (11.5-20.0) 06/10/17 05:30 Plt Count 252 Th/cmm (150-400) 06/10/17 05:30 MPV 8.1 fl 06/10/17 05:30 Neutrophils % 63.8 % (40.0-80.0) 06/10/17 05:30 Lymphocytes % 21.6 % (20.0-50.0) 06/10/17 05:30 Monocytes % 9.8 % (2.0-10.0) 06/10/17 05:30 Eosinophils % 4.3 % (0.0-5.0) 06/10/17 05:30 Basophils % 0.5 % (0.0-2.0) 06/10/17 05:30 ESR 51 mm/hr (0-30) H 06/10/17 05:30 PT 10.8 SECONDS (9.5-11.5) 06/04/17 15:58 INR 1.04 (0.5-1.4) 06/04/17 15:58 PTT (Actin FS) 27.7 SECONDS (26.0-38.0) 06/04/17 15:58 Sodium 136 mEq/L (136-145) 06/10/17 05:30 Potassium 3.5 mEq/L (3.5-5.1) 06/10/17 05:30 Chloride 108 mEq/L (98-107) H 06/10/17 05:30 Carbon Dioxide 24.1 mEq/L (21.0-31.0) 06/10/17 05:30 Anion Gap 7.4 (7.0-16.0) 06/10/17 05:30 BUN 10 mg/dL (7-25) 06/10/17 05:30 Creatinine 0.6 mg/dL (0.6-1.2) 06/10/17 05:30 Est GFR ( Amer) TNP 06/10/17 05:30 Est GFR (Non-Af Amer) TNP 06/10/17 05:30 BUN/Creatinine Ratio 16.7 06/10/17 05:30 Glucose 134 mg/dL (70-105) H 06/10/17 05:30 POC Glucose 125 MG/DL (70 - 105) H 06/08/17 05:07 Hemoglobin A1c % 5.8 % (4.0-6.0) 06/05/17 04:29 Whole Bld Lactic Acid 1.55 mmol/L (0.60-1.99) 06/04/17 15:58 Calcium 8.9 mg/dL (8.6-10.3) 06/10/17 05:30 Phosphorus 3.4 mg/dL (2.5-5.0) 06/10/17 05:30 Magnesium 2.0 mg/dL (1.9-2.7) 06/10/17 05:30 Total Bilirubin 0.3 mg/dL (0.3-1.0) 06/10/17 05:30 AST 11 U/L (13-39) L 06/10/17 05:30 ALT 8 U/L (7-52) 06/10/17 05:30 Alkaline Phosphatase 39 U/L (34-104) 06/10/17 05:30 Ammonia 44 umol/L (16-53) 06/05/17 04:29 Creatine Kinase 14 U/L (30-223) L 06/04/17 15:58 Troponin I 0.01 ng/mL (0.01-0.05) 06/04/17 15:58 B-Natriuretic Peptide 149.0 pg/mL (5.0-100.0) H 06/04/17 15:58 Total Protein 5.7 gm/dL (6.0-8.3) L 06/10/17 05:30 Albumin 3.2 gm/dL (3.7-5.3) L 06/10/17 05:30 Globulin 2.5 gm/dL 06/10/17 05:30 Albumin/Globulin Ratio 1.3 (1.0-1.8) 06/10/17 05:30 Triglycerides 156 mg/dL (<150) H 06/07/17 05:50 Cholesterol 124 mg/dL (<200) 06/10/17 05:30 LDL Cholesterol Direct 101 mg/dL (75-193) 06/04/17 15:58 HDL Cholesterol 42 mg/dL (23-92) 06/04/17 15:58 Amylase 38 U/L (29-103) 06/04/17 15:58 Lipase 11 U/L (11-82) 06/08/17 06:23 Vitamin B12 568 pg/mL (211-946) 06/05/17 04:29 Folic Acid 5.3 ng/mL (>3.0) 06/05/17 04:29 TSH 4.51 uIU/ml (0.34-5.60) 06/05/17 04:29 Urine Source CATH 06/08/17 18:55 Urine Color BROWN 06/08/17 18:55 Urine Clarity HAZY (CLEAR) 06/08/17 18:55 Urine pH 6.0 (4.6 - 8.0) 06/08/17 18:55 Ur Specific [place] 1.025 (1.005-1.030) 06/08/17 18:55 Urine Protein 30 mg/dL (NEGATIVE) H 06/08/17 18:55 Urine Glucose (UA) NEGATIVE mg/dL (NEGATIVE) 06/08/17 18:55 Urine Ketones NEGATIVE mg/dL (NEGATIVE) 06/08/17 18:55 Urine Blood NEGATIVE (NEGATIVE) 06/08/17 18:55 Urine Nitrate POSITIVE (NEGATIVE) H 06/08/17 18:55 Urine Bilirubin NEGATIVE (NEGATIVE) 06/08/17 18:55 Urine Urobilinogen 0.2 E.U./dL (0.2 - 1.0) 06/08/17 18:55 Ur Leukocyte Esterase TRACE (NEGATIVE) H 06/08/17 18:55 Urine RBC 0-2 /hpf (0-5) 06/08/17 18:55 Urine WBC 2-5 /hpf (0-5) 06/08/17 18:55 Ur Epithelial Cells OCCASIONAL /lpf (FEW) 06/08/17 18:55 Urine Bacteria FEW /hpf (NONE SEEN) 06/08/17 18:55 Urine Mucus FEW /lpf (FEW) 06/08/17 18:55 - Physical Exam Vitals and I&O: Vital Signs Temp 96.4 F 06/10/17 07:54 Pulse 66 06/10/17 09:46 Resp 16 06/10/17 08:00 BP 136/62 06/10/17 09:46 Pulse Ox 95 06/10/17 07:54 Intake & Output 06/09/17 06/10/17 06/10/17 18:59 06:59 18:59 Intake Total 400 0 Balance 400 0 Weight (lbs) 64.864 kg 64.864 kg Intake: Intake, IV Amount 100 0 Levofloxacin 250mg/50mL 0 250 mg In 50 ml @ 50 mls/ hr IV Q24HR [facility] Rx#: [id number] metroNIDAZOLE 500mg/NS 100 100mL 500 mg In 100 ml @ 100 mls/hr IV Q8HR [facility] Rx #:[id number] Oral 300 Other: # Voids 3 2 # Bowel Movements 1 1 Active Medications: Current Medications Acetaminophen (Tylenol) 650 mg PO Q6HR PRN PRN Reason: Pain (Mild) Stop: 08/03/17 21:50 Last Admin: 06/05/17 06:40 Dose: 650 mg Al Hydrox/Mg Hydrox/Simethicone (Maalox) 30 ml PO Q6H PRN PRN Reason: Dyspepsia Stop: 08/03/17 21:51 Albuterol Sulfate (Albuterol 2.5mg/3ml Neb Ud) 2.5 mg HHN Q2HRT PRN PRN Reason: Shortness of Breath or Wheeze Stop: 08/03/17 21:51 Bisacodyl (Dulcolax 10 Mg Supp) 10 mg RC Q24H PRN PRN Reason: Constipation Stop: 08/03/17 21:50 Cholecalciferol (Vitamin D3) 5,000 iu PO DAILY [facility] Stop: 08/04/17 08:59 Last Admin: 06/10/17 09:45 Dose: 5,000 iu Diphenhydramine HCl (Benadryl 50 Mg/Ml) 25 mg IVP Q8HR PRN PRN Reason: Agitation Stop: 08/06/17 15:48 Docusate Sodium (Colace) 100 mg PO TID [facility] Stop: 08/08/17 13:59 Last Admin: 06/10/17 09:48 Dose: 100 mg Famotidine (Pepcid) 20 mg IVP Q12H [facility] Stop: 08/03/17 21:59 Last Admin: 06/10/17 09:46 Dose: 20 mg Gabapentin (Neurontin) 300 mg PO HS [facility] Stop: 08/04/17 20:59 Last Admin: 06/09/17 21:49 Dose: 300 mg Levofloxacin (Levaquin Pb) 250 mg in 50 mls @ 50 mls/hr IV Q24HR [facility] Stop: 08/04/17 20:59 Last Admin: 06/09/17 21:51 Dose: 100 mls/hr Metronidazole (Flagyl) 500 mg in 100 mls @ 100 mls/hr IV Q8HR [facility] Stop: 08/04/17 04:59 Last Admin: 06/10/17 05:42 Dose: 100 mls/hr Multivitamins/Minerals 10 ml/Dextrose/ Amino Acids/Electrolytes/ Fat Emulsion Intravenous 1,680 mls @ 70 mls/hr IV .Q24H [facility] Stop: 08/08/17 15:59 Last Admin: 06/09/17 16:19 Dose: 70 mls/hr Dextrose/Sodium Chloride (D5-0.45ns) 1,000 mls @ 20 mls/hr IV .Q24H [facility] Stop: 08/09/17 09:59 Last Admin: 06/10/17 10:08 Dose: 20 mls/hr Lactobacillus Rhamnosus (Culturelle) 1 each PO DAILY [facility] Stop: 08/06/17 08:59 Last Admin: 06/10/17 09:46 Dose: 1 each Levothyroxine Sodium (Synthroid) 0.1 mg PO QDAC [facility] Stop: 08/04/17 07:29 Last Admin: 06/10/17 07:05 Dose: 0.1 mg Losartan Potassium (Cozaar) 50 mg PO DAILY [facility] Stop: 08/04/17 08:59 Last Admin: 06/10/17 09:46 Dose: 50 mg Magnesium Hydroxide (Milk Of Magnesia) 30 ml PO Q24H PRN PRN Reason: IF NO BM IN THREE DAYS Stop: 08/03/17 21:50 Miscellaneous (Probiotic Screen) 1 ea PRN PRN PRN Reason: PROTOCOL Stop: 08/05/17 10:59 Miscellaneous (Ppn Per Pharmacy) 1 ea PRN PRN PRN Reason: PROTOCOL Stop: 08/07/17 13:24 Morphine Sulfate (Morphine) 2 mg IVP Q4H PRN PRN Reason: Pain (Severe) Stop: 08/03/17 21:51 Last Admin: 06/06/17 15:48 Dose: 2 mg Ondansetron HCl (Zofran) 4 mg IV Q8H PRN PRN Reason: Nausea / Vomiting Stop: 08/03/17 21:53 Quetiapine Fumarate (Seroquel) 100 mg PO HS [facility] PRN Reason: Protocol Stop: 08/07/17 20:59 Last Admin: 06/09/17 21:48 Dose: 100 mg Quetiapine Fumarate (Seroquel) 25 mg PO BID PRN; Protocol PRN Reason: Agitation Stop: 08/07/17 08:59 General: weak, demented HEENT: NC/AT, PERRLA Neck: Supple Lungs: congested, ronchi Cardiovascular: RRR, Normal S1, Normal S2, with murmur Abdomen: soft, non-tender, non-distended, positive bowel sound Extremities: excoriation, contracture Neurological: no change, unable to follow command Internal Medicine Assmt/Plan - Assessment Assessment: ACUTE DIVERTICULITIS w microperf ACUTE ABDOMINAL PAIN ACUTE UTI SCHIZOAFFECTIVE DISORDER OBESITY HYPERCHOLESTEREMIA HTN - Plan Plan: cont on iv abx gi follow up dw son pscyh follow up ivf cpm see orders Nutritional Asmnt/Malnutr-PDOC - Dietary Evaluation Malnutrition Findings (Please click <Entered> for more info): Nutritional Asmnt/Malnutrition Start: 06/08/17 12: 37 Text: Status: Complete Freq: Document 06/08/17 12:37 [email or web address] (Rec: 06/08/17 12:56 SAMANTHACHANA MASN- FNS1) Nutritional Asmnt/Malnutrition Patient General Information Nutritional Screening Moderate Risk Screening Diagnosis Abdominal pain, intractable vomiting (Reason for visit) sepsis Pertinent Medical Hx/Surgical Hx DIVERTICULOSIS, POLYNEUROPATHY , ARTHRITIS, MUSCLE WEAKNESS, HYPOTHYROIDISM, BIPOLAR, DEPRESSION, PSYCHOTIC, HYPERLIPIDEMIA, HEARING LOSS, DISORDER OF BONE DENSITY, VITAMIN D DEFICENCY, MUSCLE WEAKNESS, GAIT AND MOBILITY ABNORMALITY Subjective Information Per nursing notes, patient deaf; admitted from SNF and found with UTI and diverticulitis per H&P. Patient received PPN x 1 day, now on clear liquid diet. 1:1 sitter at bedside. Per nursing notes, patient refused to eat breakfast; procalamine ordered today and PPN to start tomorrow. No vomiting noted. Current Diet Order/ Nutrition Support Clear liquid Patient / S.O Not Indicated Pertinent Medications maalox, dulcolax, vitamin D, D5-0.45NS @70ml/hr, colace, pepcid, culturelle, synthroid, cozaar, MOM, flagyl, zofran, seroquel Pertinent Labs (06/08) Mg 1.8 (decreasing), albumin 3.3 (decreased) Nutritional Hx/Data Height 1.57 m Height (Calculated Centimeters) 157.5 Current Weight (lbs) 64.864 kg Weight (Calculated Kilograms) 64.9 Weight (Calculated Grams) 05270.7 [place] Body Weight 110 % [place] Body Weight 130 Weight Status Overweight GI Symptoms Food Allergies No Cultural/Ethnic/Pent[employer]ostalism Belief None indicated Skin Integrity/Comment: [place] 14, intact Current %PO Negligible < 25% Estimated Nutritional Goals BEE in Kcals: Using Current wt Calories/Kcals/Kg (25-30 kcal/kg) 65kg Kcals Calculated 4341-1850 kcal/day Protein: Using Current wt Protein g/kg: (1 gm/kg) Protein Calculated 65 gm/day Fluid: ml 8520-4800 ml/day (1 ml/kcal) Nutritional Problem 1. Problem Problem Inadequate oral intake related to Etiology possible poor appetite/ abdominal pain, lack of diet advancement aeb Signs/Symptoms: Meeting <25% of estimated calorie needs from oral diet. Intervention/Recommendation Comments 1. Continue clear liquid diet as tolerated by patient; advance diet as tolerated to goal of regular diet (texture to be determined by speech therapist if swallowing difficulty). 2. Consider appetite stimulant to increase oral intake. Nursing to provide full assistance with meals and encourage oral intake. PPN not indicated at this time. Expected Outcomes/Goals Expected Outcomes/Goals oral intake to meet >75% of estimated nutrient needs, weight stable, nutrition related labs normalize.
--- NOTE | 2017-06-10 16:59 | Progress Notes ---
DATE: 06/10/2017 HISTORY OF PRESENT ILLNESS: An 86-year-old female, had been confused, disoriented. The patient seems to be doing better now. Son at bedside states that his mom is nearly at her baseline, interactive. The patient is calm, cooperative, sleeping fairly well, eating fairly well. No events. MEDICATIONS: Noted. No side effects noted. MEDICAL HISTORY: Please see full H and P. SOCIAL HISTORY: The patient coming from [facility] in [place]. MENTAL STATUS EXAMINATION: Stated age. Fair eye contact. Speech within normal limits. Mood "okay." Affect flat. Thought processes, she seems more engaged. No SI, no HI, no overt psychotic symptoms. PROVISIONAL DIAGNOSIS: Bipolar, per history. RECOMMENDATIONS AND PLAN: The patient is doing well, likely she was delirious, son noting she is at baseline now, doing a lot better. [facility]# [id number]
[2017-06-11] MEDS: metroNIDAZOLE 500mg/NS 100mL 500 MG/100 ML BAG IV SCH ×2 (05:35→13:41)
[2017-06-11 06:22] LABS: ALB/GLOB RATIO 1.3 (1.0-1.8); ALKALINE PHOSPHATASE 43 U/L (34-104); ANION GAP 9.1 (7.0-16.0); BILIRUBIN,TOTAL 0.2 mg/dL (0.3-1.0); BUN - UREA NITROGEN 12 mg/dL (7-25); CARBON DIOXIDE 23.8 mEq/L (21.0-31.0); CHLORIDE 110 mEq/L (98-107); CREATININE - SERUM 0.6 mg/dL (0.6-1.2); GLUCOSE 126 mg/dL (70-105); PHOSPHOROUS 3.4 mg/dL (2.5-5.0); POTASSIUM SERUM 3.9 mEq/L (3.5-5.1); SGOT 12 U/L (13-39); SGPT/ALT 8 U/L (7-52); SODIUM SERUM 139 mEq/L (136-145)
[2017-06-11] MEDS: Levofloxacin 250mg/50mL 250 MG/50 ML BAG IV SCH (06:38)
[2017-06-11] MEDS: Levothyroxine 0.1 Mg Tab PO SCH (07:20)
[2017-06-11] MEDS: Lactobacillus Rhamnosus 10 Billion CFU Capsule PO SCH (09:02)
--- NOTE | 2017-06-11 13:52 | Internal Medicine Prog Note ---
Internal Medicine Subjective - Subjective Service Date: 06/11/17 ([id number] dc summary) Patient is:: awake, verbal, interactive, agitated, confused Patient Complaints of:: unable to sleep Per staff patient has:: no adverse event, poor appetite, poor oral intake, agitated, refusing care, refusing labs Internal Medicine Objective - Results Result Diagrams: 06/10/17 05:30 06/11/17 05:40 Recent Labs: Laboratory Last Values WBC 8.5 Th/cmm (4.8-10.8) 06/10/17 05:30 RBC 4.38 Mil/cmm (3.80-5.20) 06/10/17 05:30 Hgb 12.8 gm/dL (12-16) 06/10/17 05:30 Hct 37.7 % (41.0-60) L 06/10/17 05:30 MCV 86.1 fl (81-100) 06/10/17 05:30 MCH 29.1 pg (27.0-31.0) 06/10/17 05:30 MCHC Differential 33.8 pg (28.0-36.0) 06/10/17 05:30 RDW 13.7 % (11.5-20.0) 06/10/17 05:30 Plt Count 252 Th/cmm (150-400) 06/10/17 05:30 MPV 8.1 fl 06/10/17 05:30 Neutrophils % 63.8 % (40.0-80.0) 06/10/17 05:30 Lymphocytes % 21.6 % (20.0-50.0) 06/10/17 05:30 Monocytes % 9.8 % (2.0-10.0) 06/10/17 05:30 Eosinophils % 4.3 % (0.0-5.0) 06/10/17 05:30 Basophils % 0.5 % (0.0-2.0) 06/10/17 05:30 ESR 51 mm/hr (0-30) H 06/10/17 05:30 PT 10.8 SECONDS (9.5-11.5) 06/04/17 15:58 INR 1.04 (0.5-1.4) 06/04/17 15:58 PTT (Actin FS) 27.7 SECONDS (26.0-38.0) 06/04/17 15:58 Sodium 139 mEq/L (136-145) 06/11/17 05:40 Potassium 3.9 mEq/L (3.5-5.1) 06/11/17 05:40 Chloride 110 mEq/L (98-107) H 06/11/17 05:40 Carbon Dioxide 23.8 mEq/L (21.0-31.0) 06/11/17 05:40 Anion Gap 9.1 (7.0-16.0) 06/11/17 05:40 BUN 12 mg/dL (7-25) 06/11/17 05:40 Creatinine 0.6 mg/dL (0.6-1.2) 06/11/17 05:40 Est GFR ( Amer) TNP 06/11/17 05:40 Est GFR (Non-Af Amer) TNP 06/11/17 05:40 BUN/Creatinine Ratio 20.0 06/11/17 05:40 Glucose 126 mg/dL (70-105) H 06/11/17 05:40 POC Glucose 125 MG/DL (70 - 105) H 06/08/17 05:07 Hemoglobin A1c % 5.8 % (4.0-6.0) 06/05/17 04:29 Whole Bld Lactic Acid 1.55 mmol/L (0.60-1.99) 06/04/17 15:58 Calcium 9.0 mg/dL (8.6-10.3) 06/11/17 05:40 Phosphorus 3.4 mg/dL (2.5-5.0) 06/11/17 05:40 Magnesium 2.0 mg/dL (1.9-2.7) 06/11/17 05:40 Total Bilirubin 0.2 mg/dL (0.3-1.0) L 06/11/17 05:40 AST 12 U/L (13-39) L 06/11/17 05:40 ALT 8 U/L (7-52) 06/11/17 05:40 Alkaline Phosphatase 43 U/L (34-104) 06/11/17 05:40 Ammonia 44 umol/L (16-53) 06/05/17 04:29 Creatine Kinase 14 U/L (30-223) L 06/04/17 15:58 Troponin I 0.01 ng/mL (0.01-0.05) 06/04/17 15:58 B-Natriuretic Peptide 149.0 pg/mL (5.0-100.0) H 06/04/17 15:58 Total Protein 5.7 gm/dL (6.0-8.3) L 06/11/17 05:40 Albumin 3.2 gm/dL (3.7-5.3) L 06/11/17 05:40 Globulin 2.5 gm/dL 06/11/17 05:40 Albumin/Globulin Ratio 1.3 (1.0-1.8) 06/11/17 05:40 Prealbumin 20 mg/dL (9-32) 06/10/17 05:30 Triglycerides 156 mg/dL (<150) H 06/07/17 05:50 Cholesterol 124 mg/dL (<200) 06/10/17 05:30 LDL Cholesterol Direct 101 mg/dL (75-193) 06/04/17 15:58 HDL Cholesterol 42 mg/dL (23-92) 06/04/17 15:58 Amylase 38 U/L (29-103) 06/04/17 15:58 Lipase 11 U/L (11-82) 06/08/17 06:23 Vitamin B12 568 pg/mL (211-946) 06/05/17 04:29 Folic Acid 5.3 ng/mL (>3.0) 06/05/17 04:29 TSH 4.51 uIU/ml (0.34-5.60) 06/05/17 04:29 Urine Source CATH 06/08/17 18:55 Urine Color BROWN 06/08/17 18:55 Urine Clarity HAZY (CLEAR) 06/08/17 18:55 Urine pH 6.0 (4.6 - 8.0) 06/08/17 18:55 Ur Specific Watson 1.025 (1.005-1.030) 06/08/17 18:55 Urine Protein 30 mg/dL (NEGATIVE) H 06/08/17 18:55 Urine Glucose (UA) NEGATIVE mg/dL (NEGATIVE) 06/08/17 18:55 Urine Ketones NEGATIVE mg/dL (NEGATIVE) 06/08/17 18:55 Urine Blood NEGATIVE (NEGATIVE) 06/08/17 18:55 Urine Nitrate POSITIVE (NEGATIVE) H 06/08/17 18:55 Urine Bilirubin NEGATIVE (NEGATIVE) 06/08/17 18:55 Urine Urobilinogen 0.2 E.U./dL (0.2 - 1.0) 06/08/17 18:55 Ur Leukocyte Esterase TRACE (NEGATIVE) H 06/08/17 18:55 Urine RBC 0-2 /hpf (0-5) 06/08/17 18:55 Urine WBC 2-5 /hpf (0-5) 06/08/17 18:55 Ur Epithelial Cells OCCASIONAL /lpf (FEW) 06/08/17 18:55 Urine Bacteria FEW /hpf (NONE SEEN) 06/08/17 18:55 Urine Mucus FEW /lpf (FEW) 06/08/17 18:55 - Physical Exam Vitals and I&O: Vital Signs Temp 97.7 F 06/11/17 08:00 Pulse 60 06/11/17 09:01 Resp 18 06/11/17 08:30 BP 127/68 06/11/17 09:01 Pulse Ox 93 06/11/17 08:30 Intake & Output 06/10/17 06/11/17 06/11/17 18:59 06:59 18:59 Intake Total 200 100 Balance 200 100 Weight (lbs) 143 lb Intake: Intake, IV Amount 200 100 metroNIDAZOLE 500mg/NS 200 100 100mL 500 mg In 100 ml @ 100 mls/hr IV Q8HR [facility] Rx #:[id number] Other: # Voids 2 # Bowel Movements 0 Active Medications: Current Medications Acetaminophen (Tylenol) 650 mg PO Q6HR PRN PRN Reason: Pain (Mild) Stop: 08/03/17 21:50 Last Admin: 06/05/17 06:40 Dose: 650 mg Al Hydrox/Mg Hydrox/Simethicone (Maalox) 30 ml PO Q6H PRN PRN Reason: Dyspepsia Stop: 08/03/17 21:51 Albuterol Sulfate (Albuterol 2.5mg/3ml Neb Ud) 2.5 mg HHN Q2HRT PRN PRN Reason: Shortness of Breath or Wheeze Stop: 08/03/17 21:51 Bisacodyl (Dulcolax 10 Mg Supp) 10 mg RC Q24H PRN PRN Reason: Constipation Stop: 08/03/17 21:50 Cholecalciferol (Vitamin D3) 5,000 iu PO DAILY MARICEL Stop: 08/04/17 08:59 Last Admin: 06/11/17 09:01 Dose: 5,000 iu Diphenhydramine HCl (Benadryl 50 Mg/Ml) 25 mg IVP Q8HR PRN PRN Reason: Agitation Stop: 08/06/17 15:48 Docusate Sodium (Colace) 100 mg PO TID MARICEL Stop: 08/08/17 13:59 Last Admin: 06/11/17 13:41 Dose: 100 mg Famotidine (Pepcid) 20 mg IVP Q12H MARICEL Stop: 08/03/17 21:59 Last Admin: 06/11/17 09:02 Dose: 20 mg Gabapentin (Neurontin) 300 mg PO HS MARICEL Stop: 08/04/17 20:59 Last Admin: 06/10/17 21:15 Dose: 300 mg Metronidazole (Flagyl) 500 mg in 100 mls @ 100 mls/hr IV Q8HR MARICEL Stop: 08/04/17 04:59 Last Admin: 06/11/17 13:41 Dose: 100 mls/hr Multivitamins/Minerals 10 ml/Dextrose/ Amino Acids/Electrolytes/ Fat Emulsion Intravenous 1,680 mls @ 70 mls/hr IV .Q24H MARICEL Stop: 06/11/17 15:59 Last Admin: 06/09/17 16:19 Dose: 70 mls/hr Lactobacillus Rhamnosus (Culturelle) 1 each PO DAILY MARICEL Stop: 08/06/17 08:59 Last Admin: 06/11/17 09:02 Dose: 1 each Levothyroxine Sodium (Synthroid) 0.1 mg PO QDAC MARICEL Stop: 08/04/17 07:29 Last Admin: 06/11/17 07:20 Dose: 0.1 mg Losartan Potassium (Cozaar) 50 mg PO DAILY MARICEL Stop: 08/04/17 08:59 Last Admin: 06/11/17 09:01 Dose: 50 mg Magnesium Hydroxide (Milk Of Magnesia) 30 ml PO Q24H PRN PRN Reason: IF NO BM IN THREE DAYS Stop: 08/03/17 21:50 Miscellaneous (Probiotic Screen) 1 ea MC PRN PRN PRN Reason: PROTOCOL Stop: 08/05/17 10:59 Ondansetron HCl (Zofran) 4 mg IV Q8H PRN PRN Reason: Nausea / Vomiting Stop: 08/03/17 21:53 Quetiapine Fumarate (Seroquel) 25 mg PO BID PRN; Protocol PRN Reason: Agitation Stop: 08/07/17 08:59 Quetiapine Fumarate (Seroquel) 100 mg PO HS MARICEL Stop: 08/10/17 20:59 General: weak, demented HEENT: NC/AT, PERRLA Neck: Supple Lungs: congested, ronchi Cardiovascular: RRR, Normal S1, Normal S2, with murmur Abdomen: soft, non-tender, non-distended, positive bowel sound Extremities: excoriation, contracture Neurological: no change, unable to follow command Internal Medicine Assmt/Plan - Assessment Assessment: ACUTE DIVERTICULITIS ACUTE ABDOMINAL PAIN ACUTE UTI SCHIZOAFFECTIVE DISORDER OBESITY HYPERCHOLESTEREMIA HTN - Plan Plan: continue iv antibiotics ivf for hydration gi f/u am labs monitor electrolytes continue current plan of care Nutritional Asmnt/Malnutr-PDOC - Dietary Evaluation Malnutrition Findings (Please click <Entered> for more info): Nutritional Asmnt/Malnutrition Start: 06/08/17 12: 37 Text: Status: Complete Freq: Document 06/08/17 12:37 MMULCHANA (Rec: 06/08/17 12:56 MMULCHANA CRUZ FN) Nutritional Asmnt/Malnutrition Patient General Information Nutritional Screening Moderate Risk Screening Diagnosis Abdominal pain, intractable vomiting (Reason for visit) sepsis Pertinent Medical Hx/Surgical Hx DIVERTICULOSIS, POLYNEUROPATHY , ARTHRITIS, MUSCLE WEAKNESS, HYPOTHYROIDISM, BIPOLAR, DEPRESSION, PSYCHOTIC, HYPERLIPIDEMIA, HEARING LOSS, DISORDER OF BONE DENSITY, VITAMIN D DEFICENCY, MUSCLE WEAKNESS, GAIT AND MOBILITY ABNORMALITY Subjective Information Per nursing notes, patient deaf; admitted from SNF and found with UTI and diverticulitis per H&P. Patient received PPN x 1 day, now on clear liquid diet. 1:1 sitter at bedside. Per nursing notes, patient refused to eat breakfast; procalamine ordered today and PPN to start tomorrow. No vomiting noted. Current Diet Order/ Nutrition Support Clear liquid Patient / S.O Not Indicated Pertinent Medications maalox, dulcolax, vitamin D, D5-0.45NS @70ml/hr, colace, pepcid, culturelle, synthroid, cozaar, MOM, flagyl, zofran, seroquel Pertinent Labs (06/08) Mg 1.8 (decreasing), albumin 3.3 (decreased) Nutritional Hx/Data Height 5 ft 2 in Height (Calculated Centimeters) 157.5 Current Weight (lbs) 143 lb Weight (Calculated Kilograms) 64.9 Weight (Calculated Grams) 41880.7 [place] Body Weight 110 % [place] Body Weight 130 Weight Status Overweight GI Symptoms Food Allergies No Cultural/Ethnic/[employer] Belief None indicated Skin Integrity/Comment: [place] 14, intact Current %PO Negligible < 25% Estimated Nutritional Goals BEE in Kcals: Using Current wt Calories/Kcals/Kg (25-30 kcal/kg) 65kg Kcals Calculated 9825-7188 kcal/day Protein: Using Current wt Protein g/kg: (1 gm/kg) Protein Calculated 65 gm/day Fluid: ml 9706-8284 ml/day (1 ml/kcal) Nutritional Problem 1. Problem Problem Inadequate oral intake related to Etiology possible poor appetite/ abdominal pain, lack of diet advancement aeb Signs/Symptoms: Meeting <25% of estimated calorie needs from oral diet. Intervention/Recommendation Comments 1. Continue clear liquid diet as tolerated by patient; advance diet as tolerated to goal of regular diet (texture to be determined by speech therapist if swallowing difficulty). 2. Consider appetite stimulant to increase oral intake. Nursing to provide full assistance with meals and encourage oral intake. PPN not indicated at this time. Expected Outcomes/Goals Expected Outcomes/Goals oral intake to meet >75% of estimated nutrient needs, weight stable, nutrition related labs normalize.
--- NOTE | 2017-06-11 14:39 | Discharge Summary ---
DATE OF DISCHARGE: 06/11/2017 For Kanu Lang D.O. DISCHARGE DIAGNOSES: Acute diverticulitis with microperforation, acute abdominal pain, acute urinary tract infection, schizoaffective disorder, obesity, hypercholesterolemia, and hypertension. HISTORY OF PRESENT ILLNESS: This is an 86-year-old female, who is a group home resident, who was brought here to [facility] for abdominal pain. The patient was evaluated in the ER and found to have UTI and diverticulitis. The patient was admitted for further management. PHYSICAL EXAMINATION: GENERAL: The patient is an elderly female, awake, alert, in no apparent distress. VITAL SIGNS: Stable. HEENT: Normocephalic, atraumatic. NECK: Supple. No mass. LUNGS: Clear bilaterally. HEART: . ABDOMEN: Soft, nontender. HOSPITAL COURSE: During the hospital stay, the patient was admitted to the med/surg unit. The patient was kept on IV antibiotics and IV hydration and a GI consultation was on the case as well. Upon admission, the patient had a CT of abdomen and pelvis and the impression is diverticulosis with diverticulitis at the sigmoid rectal junction, microperforation, edema of mesentery. GI plan of care for this patient was to keep the patient n.p.o. till abdominal pain has resolved, continue on IV antibiotics as well as IV fluids, and if the patient was not improving, surgical consult to be on the case. The patient's abdominal pain resolved, for this reason, the patient did not need any surgical consult. For this reason, the patient was stable for discharge. CONDITION UPON DISCHARGE: Fair. DISPOSITION: long-term. JOB# [id number]
== END 2017-06-11 16:54 | disposition home or self-care (01) | DRG 871 ==
LOC: ER 15:28 → MSI 17:05
PROVIDERS: ADMIT Internal Medicine; ATTEND Internal Medicine
DX: A41.9 Sepsis, unspecified organism (principal); E43 Unspecified severe protein-calorie malnutrition; J18.9 Pneumonia, unspecified organism; N39.0 Urinary tract infection, site not specified; F03.90 Unspecified dementia, unspecified severity, without behavioral disturbance, psychotic disturbance, mood disturbance, and anxiety; I25.9 Chronic ischemic heart disease, unspecified; K57.20 Diverticulitis of large intestine with perforation and abscess without bleeding; F25.9 Schizoaffective disorder, unspecified; E66.9 Obesity, unspecified; K21.9 Gastro-esophageal reflux disease without esophagitis; K57.30 Diverticulosis of large intestine without perforation or abscess without bleeding; M19.90 Unspecified osteoarthritis, unspecified site; I10 Essential (primary) hypertension; F31.9 Bipolar disorder, unspecified; E78.00 Pure hypercholesterolemia, unspecified; R33.9 Retention of urine, unspecified; Z68.26 Body mass index [BMI] 26.0-26.9, adult; Z88.6 Allergy status to analgesic agent; Z83.3 Family history of diabetes mellitus; Z82.49 Family history of ischemic heart disease and other diseases of the circulatory system
CPT/HCPCS: 36415-UA; 71010-TC; 80053-TC; 80061-TC; 81001-TC; 82140-TC; 82150-TC; 82465-TC; 82550-TC; 82607-90; 82746-90; 82948-90; 83036-90; 83605; 83690-TC; 83735-TC; 83880-TC; 84100-TC; 84134-90; 84443-TC; 84478-TC; 84484-TC; 85007-TC; 85025-TC; 85027-TC; 85610-TC; 85652-TC; 85730-TC; 90799; 93005; 94760; J0696; J1200; J1956; J2060; J2270; J3490; J7030; X6598; Z7610